=== PATIENT | female | born 1970 | race Caucasian/White ===

== ENCOUNTER 2020-02-02 16:02 | Outpatient (CLI) | payer OTHER, SELFPAY ==
--- NOTE | ~2020-02-02 | US_ITS ---
EXAMINATION: US venous doppler [facility] EXAM DATE: 02/02/2020 16:46 INDICATION: Left calf swelling and pain. TECHNIQUE: Multiple grayscale, color flow and Doppler images of the left lower extremity deep venous system were obtained and reviewed. There is no prior study for comparison. FINDINGS: The left common femoral, femoral and profunda veins demonstrate normal color flow, respirat ory variation, augmentation and compressibility. Compressibility, color flow confirmed within the le ft popliteal, posterior tibial, peroneal, and greater saphenous veins. IMPRESSION: 1. No left lower extremity deep venous thrombosis. Reviewed, dictated and finalized at location B.
== END 2020-02-02 16:03 | disposition home or self-care (01) ==
PROVIDERS: PCP Family Medicine; Visit Provider Orthopaedic Surgery
DX: M79.89 Other specified soft tissue disorders (principal)
CPT/HCPCS: 93971

== ENCOUNTER 2020-05-02 11:28 | Outpatient (NON) | payer OTHER, SELFPAY ==
[2020-05-03 18:24] LABS: SARS-CoV-2 RNA PCR Positive
== END 2020-05-02 11:29 ==
LOC: ANHCOVIDDT 11:30
PROVIDERS: PCP Family Medicine; Visit Provider Family Medicine
DX: U07.1 COVID-19 (principal)
CPT/HCPCS: 87635; C9803; U0003

== ENCOUNTER 2020-10-21 11:18 | Outpatient (CLI) | payer OTHER, SELFPAY ==
--- NOTE | ~2020-10-21 | US_ITS ---
EXAMINATION: US pelvic complete w TV DATE: 10/21/2020 12:03 INDICATION: Pelvic pain and vaginal spotting Comparison:CT dated 02/10/2017 TECHNIQUE: Multiple transabdominal and endovaginal sonographic images of the pelvis performed. FINDINGS: The uterus measures 10 x 5 x 5.3 cm. There are multiple uterine fibroids including a 3.8 cm fibroid anteriorly and a 7.6 cm fibroid posteriorly and inferiorly. The endometrial complex measures 8 mm. The right ovary measures 2.2 x 2.1 x 2.3 cm and the left ovary measures 6.9 x 6.3 x 5.7 cm. There is a 5.3 cm left ovarian cyst. There are small follicles in each ovary. Normal doppler signal in both ov claudia. There is no free fluid in the pelvis. There are no abnormal masses seen on either side. IMPRESSION: 1. Left ovarian cyst measuring 5.3 cm. 2: Enlarged fibroid uterus. Reviewed, dictated and finalized at location A.
== END 2020-10-21 11:19 ==
PROVIDERS: PCP Physician Assistant; Visit Provider Physician Assistant
DX: R10.2 Pelvic and perineal pain (principal); D25.9 Leiomyoma of uterus, unspecified; N83.202 Unspecified ovarian cyst, left side
CPT/HCPCS: 76830; 76856

== ENCOUNTER → 2020-11-21 13:30 | Outpatient (CLI) | payer OTHER, SELFPAY ==
--- NOTE | ~2020-11-21 | MM_ITS ---
EXAMINATION: MM screening adriana BI w jay HISTORY: Screening mammogram TECHNIQUE: Craniocaudal and mediolateral oblique 3-D tomosynthesis images were obtained and synthetic 2-D images were generated. CAD analysis was submitted and interpreted. COMPARISON: 10/27/2018 bilateral diagnostic digital mammogram and bilateral Limited breast ultrasound examination BREAST PARENCHYMAL COMPOSITION: The breasts are almost entirely fatty. FINDINGS: There is no evidence of suspicious mass, calcification, or architectural distortion to sugg est malignancy in either breast. There has been no suspicious interval change. IMPRESSION: 1. No mammographic evidence of malignancy. 2. Recommend routine screening mammography in one year. BI-RADS Category 1: Negative Reviewed, dictated and finalized at location A.
== END ==
PROVIDERS: PCP Physician Assistant; Visit Provider Physician Assistant
DX: Z12.31 Encounter for screening mammogram for malignant neoplasm of breast (principal)
CPT/HCPCS: 77063; 77067

== ENCOUNTER 2020-12-19 04:10 | Emergency (ER) | payer OTHER, SELFPAY ==
--- NOTE | ~2020-12-19 | CT_ITS ---
EXAMINATION: CT abdomen pelvis w con DATE: 12/19/2020 05:41 INDICATION: Left lower quadrant abdominal pain TECHNIQUE: Computed tomography (CT) of the abdomen and pelvis was performed with 100 cc Omnipaque 350 intravenous contrast. Automated exposure control and iterative reconstruction technique were employe d. Exam dose: 1777.96 mGy-cm total exam DLP. COMPARISON: 04/09/2018 abdominal ultrasound examination 02/10/2017 CT abdomen pelvis FINDINGS: Approximately 5.5 mm groundglass opacity of middle lobe is partially included on the single uppermost axial image. No infiltrate or consolidation in the lower lung zones. Heart size is within normal range. No pericardial or pleural effusion. Small sliding hiatal hernia. Diffuse hepatic steatosis. No hepatic space-occupying mass lesion is evident. Status post cholecystec charu. No bile duct dilatation. Splenic size is within normal range. No pancreatic mass lesion, calcif ication or ductal dilatation. Normal morphology of the adrenal glands. No renal mass lesion or ureteral calculus or hydroureteronephrosis. There is a stable up to 7.5 cm mass at the left posterior aspect of the uterus, not significantly lisa nged since 1970, previously attributed to likely fibroid. Again noted is a heterogeneous left adnexal mass, currently measuring approximately 4.8 x 7.5 cm comp ared to previous measurement of 4.9 x 6.3 cm. Left ovarian neoplasm be considered. The right ovary ap pears unremarkable. Normal caliber of the abdominal aorta. No intraperitoneal or retroperitoneal or pelvic mass lesion or adenopathy or ascites is noted otherwi se. The urinary bladder is unremarkable. Normal appendix. No bowel obstruction, bowel wall thickening, pneumatosis or intraperitoneal free air . Prominent fat-containing umbilical hernia measuring up to 9.7 cm vertical, 7.5 cm transverse and 6 cm anteroposterior dimension. Degenerative changes of the thoracic and lumbar spine. No suspicious osteolytic or osteoblastic lesio ns are noted. IMPRESSION: Increased size of left adnexal mass from 4.9 x 6.3 cm on 03/13/2000 17-4 0.8 x 7.5 cm cur rently. Stable up to 7.5 cm mass at left posterior aspect of uterus, not significant change since , previously attributed to likely fibroid Diffuse hepatic steatosis Small sliding hiatal hernia 9.7 x 7.5 x 6 cm fat-containing umbilical hernia Reviewed, dictated and finalized at Location A. Reviewed, dictated and finalized at location A. IMPRESSION: Increased size of left adnexal mass from 4.9 x 6.3 cm on 03/13/2000 17-4 0.8 x 7.5 cm currently. Stable up to 7.5 cm mass at left posterior aspect of uterus, not significant ch dante since , previously attributed to likely fibroid Diffuse hepatic steatosis Small sliding hiatal hernia 9.7 x 7.5 x 6 cm fat-containing umbilical hernia
[2020-12-19 04:16] VITALS: BP 156/92; PULSE 89; RESP 18; TEMP 36.7; O2SAT 98
[2020-12-19 04:35] LABS: Basophils Absolute Auto 0.1 K/mm3 (0.0-0.1); Basophils Percent Auto 0.5 % (0.2-1.2); Eosinophils Absolute Auto 0.2 K/mm3 (0-0.3); Eosinophils Percent Auto 2.5 % (0-4.4); Hematocrit 43.8 % (37.0-47.0); Hemoglobin 14.2 g/dL (12.0-15.0); Immature Granulocyte Absolute 0.05 K/mm3 (0.00-0.031); Immature Granulocyte Percent A 0.5 % (0-0.5); Lymphocytes Absolute Auto 2.68 K/mm3 (0.9-3.2); Lymphocytes Percent Auto 28.6 % (18.3-44.2); Mean Corpuscular HGB Conc 32.4 g/dl (32-36); Mean Corpuscular Hemoglobin 28.6 pg (26-34); Mean Corpuscular Volume 88.3 fl (80-100); Monocytes Absolute Auto 0.8 K/mm3 (0.1-0.6); Neutrophils Absolute Auto 5.6 K/mm3 (1.3-6.7); Neutrophils Percent Auto 59.9 % (45.5-73.1); Platelet Count Result 268 k/mm3 (150-375); Red Blood Count 4.96 M/mm3 (4.2-5.4); Red Cell Distribution Width 13.3 % (11.5-14.5); White Blood Count 9.4 K/mm3 (4.5-10.0)
[2020-12-19] MEDS: SODIUM CHLORIDE 0.9% IV 1,000 ML 999 ML IV CONT (04:51)
[2020-12-19] MEDS: ONDANSETRON INJ 4 MG/2 ML VIAL IV PUSH (04:52)
[2020-12-19] MEDS: KETOROLAC 30 MG/ML VIAL (*BKC) 15 MG IV PUSH (04:54)
[2020-12-19 05:24] VITALS: BP 150/77; PULSE 73; O2SAT 97
[2020-12-19 05:24] LABS: Add Urine Microscopic? YES; Appearance Urine Cloudy (Clear); Bacteria Urine Trace /hpf; Bilirubin Urine Negative (Negative); Blood Urine Negative (Negative); Color Urine Amber (Yellow); Glucose Urine UA Negative (Negative); Ketones Urine Negative (Negative); Leukocyte Esterase Ur Trace LEU/UL (Negative); Mucus Urine Heavy /lpf; Nitrate Urine Negative (Negative); Protein Urine 2+ mg/dL (Negative); Squamous Epithelial Cell Urine Many /hpf (Few)
[2020-12-19 05:31] LABS: Estimated CRCL calculation 164 ml/min; Estimated Glomerular Filt Rate > 60
[2020-12-19 05:36] LABS: Specific Grav Ur 1.032 (1.001-1.035)
[2020-12-19 05:37] LABS: Alanine Aminotransferase 15 U/L (4-35); Albumin Level 3.8 g/dL (3.5-5.1); Alkaline Phosphatase 100 U/L (38-126); Anion Gap 9 mmol/L (8-16); Aspartate Amino Transferase 21 U/L (14-36); Bilirubin,Total 0.4 mg/dL (0.2-1.3); Blood Urea Nitrogen 11 mg/dL (7-17); Calcium 8.2 mg/dL (8.4-10.2); Carbon Dioxide 24 mmol/L (22-30); Chloride 104 mmol/L (98-107); Estimated CRCL calculation 164 ml/min; Estimated Glomerular Filt Rate > 60; Glucose 135 mg/dL (65-105); Lipase 111 U/L (23-300); Potassium 3.6 mmol/L (3.4-5.0); Sodium 137 mmol/L (137-145)
--- NOTE | 2020-12-19 05:41 | ED.GENADULT ---
HPI - General Adult General Chief complaint: Abdominal Pain Stated complaint: L flank pain Time Seen by Provider: 12/19/20 04:31 History of Present Illness HPI narrative: Patient is a 50-year-old female who presents emerged from with chief complaint of left lower quadrant pain. The patient reports that she has pain left lower quadrant and left flank area patient reports that radiates from the left lower quadrant reports is not improved by anything not worsened by anything denies fever denies chills denies nausea or vomiting or diarrhea. Patient reports no prior history of diverticulitis Related Data Allergies Allergy/AdvReac Type Severity Reaction Status Date / Time Sulfa (Sulfonamide Allergy Unknown Skin Verified 12/19/20 04:22 Antibiotics) irritation sulfur dioxide Allergy Unknown Unknown Verified 12/19/20 04:22 Review of Systems Review of Systems: Narrative: A 10 system review of systems was completed on the patient and is negative except for what is stated in the HPI. Nursing and ancillary documentation was reviewed. PMFSH Past Medical History Medical History BMI 37.0-37.9, adult Lipoma of flank Low calcium levels Low vitamin D level Morbidly obese Rash Routine physical examination Screening for lipid disorders Screening for thyroid disorder Subcutaneous mass Family History Family History Mother Diabetes mellitus Hypertension Grandparent Diabetes mellitus Family history of cardiovascular disease Malignant neoplasm of prostate Father Hypertension Sibling Hypertension Other Cerebrovascular accident Family history of arthritis Social History Social History Smoking status: Never smoker Alcohol intake: never Substance use: never Substance use type: does not use 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 HEAD: Normocephalic, atraumatic. EYES: PERRLA and EOMI. ENT: Nares clear, no rhinorrhea or epistaxis. Mucous membranes moist. NECK: Supple. CHEST: Clear to auscultation. No respiratory distress. HEART: Regular rate and rhythm. No murmur heard. Normal peripheral pulses. ABDOMEN: Soft, tenderness to palpation in the left lower quadrant, nondistended, normal active bowel sounds. EXTREMITIES: Normal range of motion. No edema. SKIN: Warm, dry, no rash. NEURO: No focal deficits. Alert and oriented x3. PSYCH: Normal mood and affect. Course Vital Signs Vital signs: Vital Signs Temperature 36.7 C 12/19/20 04:16 Pulse Rate 89 12/19/20 04:16 Respiratory Rate 18 12/19/20 04:16 Blood Pressure 156/92 H 12/19/20 04:16 Pulse Oximetry 98 12/19/20 04:16 Temperature 36.7 C 12/19/20 04:16 Pulse Rate 73 12/19/20 05:24 Respiratory Rate 18 12/19/20 04:16 Blood Pressure 150/77 H 12/19/20 05:24 Pulse Oximetry 97 12/19/20 05:24 Medical Decision Making Vital Signs Vital Signs: Vital Signs Temperature 36.7 C 12/19/20 04:16 Pulse Rate 89 12/19/20 04:16 Respiratory Rate 18 12/19/20 04:16 Blood Pressure 156/92 H 12/19/20 04:16 Pulse Oximetry 98 12/19/20 04:16 Temperature 36.7 C 12/19/20 04:16 Pulse Rate 73 12/19/20 05:24 Respiratory Rate 18 12/19/20 04:16 Blood Pressure 150/77 H 12/19/20 05:24 Pulse Oximetry 97 12/19/20 05:24 Lab Data Result diagrams: 12/19/20 04:28 12/19/20 05:27 Labs: Lab Results 12/19/20 12/19/20 12/19/20 Range/Units 04:27 04:28 04:58 WBC 9.4 (4.5-10.0) K/mm3 RBC 4.96 (4.2-5.4) M/mm3 Hgb 14.2 (12.0-15.0) g/dL Hct 43.8 (37.0-47.0) % MCV 88.3 (80-100) fl MCH 28.6 (
[2020-12-19 06:25] VITALS: BP 159/91; PULSE 71; RESP 18; O2SAT 97
[2020-12-19 07:04] VITALS: BP 145/80; PULSE 71; RESP 15; O2SAT 95
[2020-12-19 07:57] VITALS: BP 150/99; PULSE 67; RESP 14; O2SAT 97
[2020-12-19 08:37] VITALS: BP 144/82; PULSE 96; RESP 17; O2SAT 96
== END 2020-12-19 08:38 | disposition home or self-care (01) ==
PROVIDERS: Emergency Medicine; Emergency Provider Emergency Medicine; PCP Physician Assistant
DX: N94.89 Other specified conditions associated with female genital organs and menstrual cycle (principal); N39.0 Urinary tract infection, site not specified; Z68.43 Body mass index [BMI] 50.0-59.9, adult; E66.01 Morbid (severe) obesity due to excess calories
CPT/HCPCS: 36415; 74177; 80053; 81001; 81025; 83690; 85025; 87077; 87086; 87088; 87186; 96361; 96374; 96375; 99284; J1885; J2405; J7030; Q9967

== ENCOUNTER 2020-12-25 11:14 | Outpatient (CLI) | payer OTHER, SELFPAY ==
[2020-12-28 03:43] LABS: CA-125 14 U/mL (<35)
== END 2020-12-25 11:15 | disposition home or self-care (01) ==
LOC: ANHLAB 11:16
PROVIDERS: PCP Physician Assistant; Visit Provider Obstetrics & Gynecology
DX: R10.2 Pelvic and perineal pain (principal); N83.202 Unspecified ovarian cyst, left side
CPT/HCPCS: 36415; 86304

== ENCOUNTER 2020-12-25 23:06 | Emergency (ER) | payer OTHER, SELFPAY ==
--- NOTE | 2020-12-25 23:10 | PC.NURSE ---
Pt. to triage and asked if she could run home for her phone. pt. states she will be back in five minutes. RN informed pt. cannot guarantee that her spot will be held.
--- NOTE | 2020-12-26 00:10 | PC.NURSE ---
Pt. never returned after ambulating out of ed. pt. did not appear to be in acute distress upon departure.
== END 2020-12-26 00:28 | disposition left against medical advice (07) ==
PROVIDERS: PCP Physician Assistant
DX: Z53.21 Procedure and treatment not carried out due to patient leaving prior to being seen by health care provider (principal)
CPT/HCPCS: 99199

== ENCOUNTER → 2021-01-19 01:05 | Outpatient (CLI) | payer OTHER, SELFPAY ==
[2021-01-19 23:59] LABS: SARS-CoV-2 RNA PCR Negative
== END ==
PROVIDERS: PCP Physician Assistant; Visit Provider Obstetrics & Gynecology
DX: Z01.812 Encounter for preprocedural laboratory examination (principal); Z20.822 Contact with and (suspected) exposure to COVID-19
CPT/HCPCS: C9803; U0003; U0005

== ENCOUNTER 2021-01-22 17:12 | Inpatient (IN) | payer OTHER, SELFPAY ==
[2021-01-16 13:03] VITALS: BMI 53.7
--- NOTE | 2021-01-19 16:27 | P.PNAN_ITS ---
Anes - Eval Pre Procedure Procedure: Operation Date: 01/22/21 12:00 Proposed Procedures p Total Laparoscopic Hysterectomy with Bilateral Salpingo-oophorectomy - Calli Flores MD Date/Time: 01/19/21 16:27 Pre Op Diagnosis: Pelvic Pain,[place] Mass, Fibroids, Menorrhagia Patient Data Age: 50 Gender: F Height: 1.78 m Weight: 170 kg Allergies Allergy/AdvReac Type Severity Reaction Status Date / Time Sulfa (Sulfonamide Allergy Unknown Skin Verified 01/16/21 13:00 Antibiotics) irritation sulfur dioxide Allergy Unknown Unknown Verified 01/16/21 13:00 Home Medications Medication Instructions Recorded Confirmed Type fluoxetine 60 mg tablet 60 mg PO DAILY #30 tablet 12/05/20 01/16/21 Rx calcium carbonate 500 mg calcium 500 mg PO DAILY 12/25/20 01/16/21 History (1,250 mg) tablet ycvxzysp-pxievwh-wgrt-iron 18 tablet PO .qd tablet 12/25/20 01/05/21 History mg-FA 400 mcg-vit K 25 mcg tablet omeprazole 20 mg capsule,delayed 20 mg PO DAILY 12/25/20 01/16/21 History release hydrocodone 5 mg-acetaminophen 325 1 tablet PO Q6H PRN #30 tablet 12/26/20 01/16/21 Rx mg tablet Patient hx anesthesia problems: none Family hx anesthesia problems: none PMFSH Past Medical History Medical History BMI 37.0-37.9, adult Lipoma of flank Low calcium levels Low vitamin D level Morbidly obese Rash Routine physical examination Screening for lipid disorders Screening for thyroid disorder Subcutaneous mass Surgical History Surgical History History of cholecystectomy History of endometrial ablation History of laparoscopy Family History Family History Mother Diabetes mellitus Hypertension Grandparent Diabetes mellitus Family history of cardiovascular disease Malignant neoplasm of prostate Father Hypertension Sibling Hypertension Other Cerebrovascular accident Family history of arthritis Social History Social History Smoking status: Never smoker Second hand tobacco smoke exposure: No Alcohol intake: never Substance use: never Substance use type: does not use 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
--- NOTE | 2021-01-19 19:25 | P.PNAN_ITS ---
Anes - Eval Pre Procedure Procedure: Operation Date: 01/22/21 12:00 Proposed Procedures p Total Laparoscopic Hysterectomy with Bilateral Salpingo-oophorectomy - Calli Flores MD Date/Time: 01/19/21 19:25 Pre Op Diagnosis: Pelvic Pain,[place] Mass, Fibroids, Menorrhagia Patient Data Age: 50 Gender: F Height: 1.78 m Weight: 170 kg Allergies Allergy/AdvReac Type Severity Reaction Status Date / Time Sulfa (Sulfonamide Allergy Unknown Skin Verified 01/16/21 13:00 Antibiotics) irritation sulfur dioxide Allergy Unknown Unknown Verified 01/16/21 13:00 Home Medications Medication Instructions Recorded Confirmed Type fluoxetine 60 mg tablet 60 mg PO DAILY #30 tablet 12/05/20 01/16/21 Rx calcium carbonate 500 mg calcium 500 mg PO DAILY 12/25/20 01/16/21 History (1,250 mg) tablet vdwufjlx-htlalhb-pxwb-iron 18 tablet PO .qd tablet 12/25/20 01/05/21 History mg-FA 400 mcg-vit K 25 mcg tablet omeprazole 20 mg capsule,delayed 20 mg PO DAILY 12/25/20 01/16/21 History release hydrocodone 5 mg-acetaminophen 325 1 tablet PO Q6H PRN #30 tablet 12/26/20 01/16/21 Rx mg tablet Patient hx anesthesia problems: none Family hx anesthesia problems: none PMFSH Past Medical History Medical History (Updated 01/19/21 @ 19:26 by Aj Baez DO) Anxiety BMI 37.0-37.9, adult Fibroids GERD (gastroesophageal reflux disease) Lipoma of flank Low calcium levels Low vitamin D level Morbidly obese Rash Subcutaneous mass Surgical History Surgical History History of cholecystectomy History of endometrial ablation History of laparoscopy Family History Family History Mother Diabetes mellitus Hypertension Grandparent Diabetes mellitus Family history of cardiovascular disease Malignant neoplasm of prostate Father Hypertension Sibling Hypertension Other Cerebrovascular accident Family history of arthritis Social History Social History Smoking status: Never smoker Second hand tobacco smoke exposure: No Alcohol intake: never Substance use: never Substance use type: does not use 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
[2021-01-22] VITALS (10 sets, daily range): BP systolic 97–154; BP diastolic 55–92; PULSE 76–93; RESP 13–20; TEMP 36.3–36.7; O2SAT 90–100
--- NOTE | 2021-01-22 06:14 | PM.IMHP ---
H&P: HPI History of Present Illness Date/Time: 01/22/21 06:14 50 y/o with heavy periods and worsening pelvic pain. LLQ pain started 09/2020 and has become more severe and constant, not relieved with ibuprofen or Tramadol but norco helps. Periods monthly lasting 7-9 days, 4-5 are heavy. She is not sexually active. h/o anemia but no transfusions Chief Complaint: Menorrhagia, left adnexal mass Review of Systems Review of Systems: All systems reviewed & are unremarkable except as noted in HPI and below PMFSH Past Medical History Medical History (Updated 01/19/21 @ 19:26 by Aj Baez DO) Anxiety BMI 37.0-37.9, adult Fibroids GERD (gastroesophageal reflux disease) Lipoma of flank Low calcium levels Low vitamin D level Morbidly obese Rash Subcutaneous mass Surgical History Surgical History History of cholecystectomy History of endometrial ablation History of laparoscopy Family History Family History Mother Diabetes mellitus Hypertension Grandparent Diabetes mellitus Family history of cardiovascular disease Malignant neoplasm of prostate Father Hypertension Sibling Hypertension Other Cerebrovascular accident Family history of arthritis Social History Social History Smoking status: Never smoker Second hand tobacco smoke exposure: No Alcohol intake: never Substance use: never Substance use type: does not use Living arrangements: with family 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 Gender identity (if verbalized by the patient): Female Spiritual care concerns: No Meds Home Medications and Allergies Home Medications Medication Instructions Recorded Confirmed Type fluoxetine 60 mg tablet 60 mg PO DAILY #30 tablet 12/05/20 01/16/21 Rx calcium carbonate 500 mg calcium 500 mg PO DAILY 12/25/20 01/16/21 History (1,250 mg) tablet thxgdvem-tvmkqpc-lnyn-iron 18 tablet PO .qd tablet 12/25/20 01/05/21 History mg-FA 400 mcg-vit K 25 mcg tablet omeprazole 20 mg capsule,delayed 20 mg PO DAILY 12/25/20 01/16/21 History release hydrocodone 5 mg-acetaminophen 325 1 tablet PO Q6H PRN #30 tablet 12/26/20 01/16/21 Rx mg tablet Allergies Allergy/AdvReac Type Severity Reaction Status Date / Time Sulfa (Sulfonamide Allergy Unknown Skin Verified 01/16/21 13:00 Antibiotics) irritation sulfur dioxide Allergy Unknown Unknown Verified 01/16/21 13:00 Exam Const: General: healthy appearing, alert and awake Resp: Auscultation: clear to auscultation bilaterally Cardio: Rate: regular rate Rhythm: regular rhythm GI: Inspection: non-distended GI Palp: Yes Soft to palpation, No Tenderness to palpation present (GI) and Yes Hernia present (umbilical, soft and nontender) : Bimanual exam- vagina & uterus: non-tender, enlarged and soft Bimanual Exam- Adnexa, other: tender on the left and Adnexal mass present on the left tender OB/external & speculum: external exam normal Extrem: General: no pedal edema and no calf tenderness Psych: Mental Status: mental status grossly normal Assessment and Plan Assessment and plan (1) Mass of left ovary: Code(s): N83.8 - Other noninflammatory disorders of ovary, fallopian tube and broad ligament Status: Acute Assessment and Plan: Ca-125 normal so suspicion for cancer is low. She opted and signed consent for TLH/BSO after risks, benefits, complications, and alternatives discussed. She is aware removing both ovaries will put her into menopause. We will see how she feels without hormones and start HRT if bothersome symptoms. We also discussed additional risk factors for needing an open procedure / laparotomy including the size of her uterus and adnexal mass, her obesity, as well as her large umbilical hernia
[2021-01-22] MEDS: ACETAMINOPHEN 500 MG TABLET 1000 MG PO (10:39)
[2021-01-22] MEDS: KETOROLAC 15 MG/ML VIAL (*BKC) IV PUSH (10:40)
[2021-01-22] MEDS: LACTATED RINGERS 1,000 ML 30 ML IV CONT ×3 (11:19→16:48)
--- NOTE | 2021-01-22 11:40 | WPDANESEFPP ---
Anes - Eval Final PreProcedure Day of Procedure 01/22/21 11:40 Patient weight: super morbidly obese Heart: regular rate and rhythm Lungs: decreased breath sounds Airway: Mallampati scale class II Neurological: alert and oriented Last oral intake: >/= 8 hours ASA classification: III Emergent: no Anesthetic plan: proceed Anesthesia type and monitoring: general ETT and standard monitoring Informed Consent: The patient's anesthetic plan and its attendant risks and benefits were discussed with the patient/family/POA. Questions were solicited and answers provided to the satisfaction of the patient/family/POA.
--- NOTE | 2021-01-22 11:45 | WPDHPUPDATE1 ---
History and Physical Update Update Date/Time: 01/22/21 11:45 History and Physical has been reviewed, including an updated exam of the patient. There are NO changes in the patient's condition. Risks, benefits, and alternatives have been discussed and questions answered. Patient agrees to proceed with procedure.
[2021-01-22] MEDS: ceFAZolin 3 GM/D5W 100 ML 100 ML IVPB (11:59)
[2021-01-22] MEDS: BUPIVACAINE/EPINEPHRINE 0.5% 30 ML VIAL INFILTRATE (13:01)
[2021-01-22] MEDS: diphenhydrAMINE HCl INJ 50 MG/ML VIAL 12.5 MG IV PUSH ×2 (16:02→16:20)
--- NOTE | 2021-01-22 16:10 | PM.OP ---
Procedure Note - Brief Procedure Note - Brief Date of procedure: 01/22/21 Pre-op diagnosis: Pelvic Pain,Adenexa Mass, Fibroids, Menorrhagia Post-op diagnosis: other (Allabove + extensive pelvic adhesions) Procedure performed: LEBRON/BSO + extensive lysis of adhesions Anesthesia: DARRON Surgeon: Calli Flores MD Estimated blood loss (mL): 1,300 Drains: Yes (Johnson) Packing: No Pathology: yes Complications: No immediate complications Condition: stable Disposition: PACU Findings: enlarged fibroid uterus, enlarged bilateral cystic ovaries with chocolate fluid in left adnexal cysts and clear fluid in right adnexal cysts; adhesions of uterus to colon and both pelvic sidewalls and of both adnexa to uterus, colon, and pelvic sidewalls
[2021-01-22 16:26] LABS: Hematocrit 31.8 % (37.0-47.0); Hemoglobin 10.2 g/dL (12.0-15.0); Mean Corpuscular HGB Conc 32.1 g/dl (32-36); Mean Corpuscular Hemoglobin 28.8 pg (26-34); Mean Corpuscular Volume 89.8 fl (80-100); Mean Platelet Volume 9.7 fl (7.4-10.4); Platelet Count Result 272 k/mm3 (150-375); Red Blood Count 3.54 M/mm3 (4.2-5.4); Red Cell Distribution Width 13.6 % (11.5-14.5); White Blood Count 20.9 K/mm3 (4.5-10.0)
[2021-01-22] MEDS: ONDANSETRON INJ 4 MG/2 ML VIAL IV PUSH (16:29)
[2021-01-22] MEDS: SCOPOLAMINE 1.5 MG PATCH TRANSDERM (16:31)
[2021-01-22] MEDS: DEXTROSE 5%/LACTATED RINGERS 1,000 ML 125 ML IV CONT (17:47)
[2021-01-22] MEDS: KETOROLAC 30 MG/ML VIAL (*BKC) IV PUSH (17:47)
--- NOTE | 2021-01-22 17:58 | PC.NURSE ---
1719-This patient, Sabrina Vasquez, was admitted to OB 2nd Floor Room 289-00. Patient/family oriented to hospital policies and general routines including ID bracelet, bed and alarms, visiting hours, pain management, procedures, bathroom and other care routines, personal items, smoking policy, room service/diet, and visiting hours. Information on how to activate the Rapid Response Team has been discussed. Patient/Family are encouraged to report perceived risks to care and to ask questions if they do not understand what they are told or what they should do.
[2021-01-22] MEDS: HYDROcodone/acetaminophen (*CRX) 10-325 MG TABLET 1 TAB PO (20:14)
[2021-01-22] MEDS: ENOXAPARIN 40 MG/0.4 ML SYRINGE SUB-Q (20:14)
[2021-01-23] VITALS: BP 117/63; PULSE 100; RESP 18; TEMP 36.5; O2SAT 96
[2021-01-23 04:00] VITALS: BP 105/60; PULSE 101; RESP 18; TEMP 36.9; O2SAT 96
[2021-01-23] MEDS: DEXTROSE 5%/LACTATED RINGERS 1,000 ML 125 ML IV CONT (05:27)
[2021-01-23] MEDS: HYDROcodone/acetaminophen (*CRX) 10-325 MG TABLET 1 TAB PO ×3 (05:29→19:00)
[2021-01-23] MEDS: IBUPROFEN 600 MG TABLET PO ×2 (05:29→11:53)
[2021-01-23] MEDS: ONDANSETRON INJ 4 MG/2 ML VIAL IV PUSH (05:30)
[2021-01-23 05:47] LABS: Basophils Percent Auto 0.2 % (0.2-1.2); Eosinophils Percent Auto 0.1 % (0-4.4); Hematocrit 28.7 % (37.0-47.0); Hemoglobin 9.1 g/dL (12.0-15.0); Immature Granulocyte Absolute 0.06 K/mm3 (0.00-0.031); Immature Granulocyte Percent A 0.4 % (0-0.5); Lymphocytes Absolute Auto 1.76 K/mm3 (0.9-3.2); Lymphocytes Percent Auto 12.8 % (18.3-44.2); Mean Corpuscular HGB Conc 31.7 g/dl (32-36); Mean Corpuscular Volume 91.4 fl (80-100); Mean Platelet Volume 10.2 fl (7.4-10.4); Monocytes Absolute Auto 1.2 K/mm3 (0.1-0.6); Monocytes Percent Auto 8.9 % (2.6-8.5); Neutrophils Absolute Auto 10.7 K/mm3 (1.3-6.7); Neutrophils Percent Auto 77.6 % (45.5-73.1); Platelet Count Result 267 k/mm3 (150-375); Red Blood Count 3.14 M/mm3 (4.2-5.4); White Blood Count 13.8 K/mm3 (4.5-10.0)
[2021-01-23 07:00] VITALS: BP 118/65; PULSE 101; RESP 20; TEMP 37.3; O2SAT 96
[2021-01-23] MEDS: CALCIUM CARBONATE (OSCAL) 500 MG TABLET PO (08:50)
[2021-01-23] MEDS: FLUoxetine HCL 20 MG CAPSULE 60 MG PO (08:50)
[2021-01-23] MEDS: PANTOPRAZOLE 40 MG TABLET PO (08:50)
[2021-01-23] MEDS: ENOXAPARIN 40 MG/0.4 ML SYRINGE SUB-Q (08:53)
[2021-01-23 11:13] LABS: Anion Gap 3 mmol/L (8-16); Blood Urea Nitrogen 16 mg/dL (7-17); Calcium 7.7 mg/dL (8.4-10.2); Carbon Dioxide 26 mmol/L (22-30); Chloride 101 mmol/L (98-107); Estimated CRCL calculation 126 ml/min; Estimated Glomerular Filt Rate > 60; Glucose 156 mg/dL (65-110); Potassium 3.9 mmol/L (3.4-5.0); Sodium 130 mmol/L (137-145)
[2021-01-23 11:48] VITALS: BP 120/70; PULSE 85; RESP 18; TEMP 36.9; O2SAT 97
[2021-01-23] MEDS: SIMETHICONE 80 MG TAB.CHEW PO (11:52)
[2021-01-23 12:00] VITALS: PULSE 85; RESP 18; O2SAT 97
--- NOTE | 2021-01-23 14:49 | WPDANESPN ---
Anes - Prog Note Post-Op Date/Time: 01/23/21 14:49 Cardiovascular status: normal Respiratory status: normal Airway patency: baseline Mental status: baseline Post-Op hydration status: normal Vital Signs: Last Vital Signs Temp 36.9 C 01/23/21 11:48 Pulse 85 01/23/21 11:48 Resp 18 01/23/21 11:48 BP 120/70 01/23/21 11:48 Pulse Ox 97 01/23/21 11:48 Pain Score (VAS): 3 I/O: Intake & Output 01/22/21 01/23/21 01/23/21 23:59 07:59 15:59 Intake Total 1150 1000 Output Total 60 450 625 Balance 1090 550 -625 Laboratory Tests 01/23/21 05:13 01/23/21 05:13 01/22/21 01/22/21 01/23/21 14:31 16:19 05:13 WBC 20.9 H 13.8 H RBC 3.54 L 3.14 L Hgb 10.2 L D 9.1 L Hct 31.8 L 28.7 L MCV 89.8 91.4 MCH 28.8 29.0 MCHC 32.1 31.7 L RDW 13.6 14.0 Plt Count 272 267 MPV 9.7 10.2 Immature Gran % (Auto) 0.4 Neut % (Auto) 77.6 H Lymph % (Auto) 12.8 L [place] % (Auto) 8.9 H Eos % (Auto) 0.1 Baso % (Auto) 0.2 Lymph # (Auto) 1.76 [place] # (Auto) 1.2 H Eos # (Auto) 0.0 Baso # (Auto) 0.0 Abs Immat Gran (auto) 0.06 H Absolute Neuts (auto) 10.7 H Absolute Nucleated RBC 0.0 Nucleated RBC % 0.0 Sodium Potassium Chloride Carbon Dioxide Anion Gap BUN Creatinine Estim Creat Clear Calc Estimated GFR Glucose Calcium Blood Type B Positive Antibody Screen Negative 01/23/21 05:13 WBC RBC Hgb Hct MCV MCH MCHC RDW Plt Count MPV Immature Gran % (Auto) Neut % (Auto) Lymph % (Auto) [place] % (Auto) Eos % (Auto) Baso % (Auto) Lymph # (Auto) [place] # (Auto) Eos # (Auto) Baso # (Auto) Abs Immat Gran (auto) Absolute Neuts (auto) Absolute Nucleated RBC Nucleated RBC % Sodium 130 L Potassium 3.9 Chloride 101 Carbon Dioxide 26 Anion Gap 3 L BUN 16 Creatinine 0.80 Estim Creat Clear Calc 126 Estimated GFR > 60 Glucose 156 H Calcium 7.7 L Blood Type Antibody Screen Post-procedural complaints: none Patient Feedback: Patient satisfied with anesthetic care.
--- NOTE | 2021-01-23 16:27 | PM.GYNPNOP ---
CORSET FITTER - A/P Postoperative Procedures: Procedures Operation Date: 01/22/21 12:00 Actual Procedure Side Surgeon p Total Abdominal Hysterectomy with Bilateral Salpingo-oophorectomy Bilateral Calli Flores MD Postoperative day: 1 (s/p hysterectomy) Postoperative status: doing well Postoperative plan: routine post-op care and other (Likely discharge tomorrow) Time Spent With Patient Time: Total time spent is greater than 50% in coordination of care (as documented) at patient's floor/unit and/or counseling patient: Time with patient: less than 15 minutes CORSET FITTER- PN:Subj Post-Op Subjective Date/time seen: 01/23/21 16:27 Subjective: patient has no complaints, pain is well controlled and other (Tolerating regular diet. + flatus. Voiding without problems) Exam Const: General: no acute distress Resp: Auscultation: clear to auscultation bilaterally Cardio: Rate: regular rate Rhythm: regular rhythm GI: Inspection: non-distended and incision (Intact without erythema, drainage, or induration) GI Palp: Yes abdominal tenderness (appropriate) and Yes Soft to palpation Extrem: General: no edema CORSET FITTER - PN: Obj Data Vital Signs Vital Signs: Vital Signs - 24 hr 01/22/21 16:40 01/22/21 16:55 01/22/21 17:09 Temperature 36.5 C 36.5 C Pulse Rate 91 86 92 Respiratory Rate 17 14 13 Blood Pressure 123/90 119/81 119/81 Pulse Oximetry 97 96 97 01/22/21 17:45 01/22/21 18:51 01/23/21 00:00 Temperature 36.3 C L 36.7 C 36.5 C Pulse Rate 90 88 100 Respiratory Rate 16 16 18 Blood Pressure 97/55 L 120/66 117/63 Pulse Oximetry 90 97 96 01/23/21 04:00 01/23/21 07:00 01/23/21 11:48 Temperature 36.9 C 37.3 C 36.9 C Pulse Rate 101 H 101 H 85 Respiratory Rate 18 20 18 Blood Pressure 105/60 118/65 120/70 Pulse Oximetry 96 96 97 Intake/Output Intake/Output: Intake & Output 01/20/21 01/21/21 01/22/21 01/23/21 23:59 23:59 23:59 23:59 Intake Total 1150 1000 Output Total 60 1075 Balance 1090 -75 Meds/Results Medications: Active Medications Generic Name Dose Route Start Last Admin Trade Name Freq PRN Reason Stop Dose Admin Hydrocodone Bitart/Acetaminophen 1 tab 01/22/21 17:12 Hydrocodone/Acetaminophen (*Crx) 5-325 Mg Tablet PO Q3H PRN Pain Rated 5 or Less Hydrocodone Bitart/Acetaminophen 1 tab 01/22/21 17:12 01/23/21 11:53 Hydrocodone/Acetaminophen (*Crx) 10-325 Mg Tablet PO 1 tab Q3H PRN Administration Pain Rated 6 or Greater Bisacodyl 10 mg 01/22/21 17:12 Bisacodyl 10 Mg Suppository RECTAL ONCE PRN Constipation Calcium Carbonate 500 mg 01/23/21 09:00 01/23/21 08:50 Calcium Carbonate (Oscal) 500 Mg Tablet PO 500 mg DAILY INES Administration Enoxaparin Sodium 40 mg 01/22/21 22:00 01/23/21 08:53 Enoxaparin 40 Mg/0.4 Ml Syringe SUB-Q 40 mg DAILY INES Administration Fluoxetine HCl 60 mg 01/23/21 09:00 01/23/21 08:50 Fluoxetine Hcl 20 Mg Capsule PO 60 mg DAILY INES Administration Dextrose/Lactated Ringer's 1,000 mls @ 125 mls/hr 01/22/21 17:12 01/23/21 05:27 Dextrose 5%/Lactated Ringers IV CONT 125 mls/hr .Q8H INES Administration Ibuprofen 600 mg 01/22/21 17:12 01/23/21 11:53 Ibuprofen 600 Mg Tablet PO 600 mg Q6H PRN Administration Cramping Ketorolac Tromethamine 30 mg 01/22/21 17:12 01/22/21 17:47 Ketorolac 30 Mg/Ml Vial (*Bkc) IV PUSH 01/27/21 17:13 30 mg Q6H PRN Administration Pain Rated 4-6 Metoclopramide HCl 10 mg 01/22/21 17:12 Metoclopramide Hcl Inj 10 Mg/2 Ml Vial IV PUSH Q6H PRN Nausea Morphine Sulfate 4 mg 01/22/21 17:12 Morphine Sulfate (*Crx) 4 Mg/Ml Inj IV PUSH Q4H PRN Pain Rated 7-10 Naloxone HCl 0.1 mg 01/22/21 17:12 Naloxone Hcl 0.4 Mg/Ml Vial IV PUSH Q2M PRN Respiratory rate less than 10 Ondansetron HCl 4 mg 01/22/21 17:12 01/23/21 05:30 Ondansetron Inj 4 Mg/2 Ml Vial IV PUSH 4 mg Q6H PRN Administration Nausea
[2021-01-23 18:36] VITALS: BP 144/82; PULSE 95; RESP 20; TEMP 36.7; O2SAT 96
[2021-01-24] MEDS: IBUPROFEN 600 MG TABLET PO ×2 (03:08→09:05)
[2021-01-24] MEDS: HYDROcodone/acetaminophen (*CRX) 5-325 MG TABLET 1 TAB PO ×2 (03:08→09:04)
--- NOTE | 2021-01-24 07:44 | PM.GYNPNOP ---
MANAGER FILM - A/P Postoperative Procedures: Procedures Operation Date: 01/22/21 12:00 Actual Procedure Side Surgeon p Total Abdominal Hysterectomy with Bilateral Salpingo-oophorectomy Bilateral Calli Flores MD Postoperative day: 2 (s/p hysterectomy) Postoperative status: doing well Postoperative plan: routine post-op care and discharge (and follow up in office in 1 week for postop visit and staple removal) Time Spent With Patient Time: Total time spent is greater than 50% in coordination of care (as documented) at patient's floor/unit and/or counseling patient: Time with patient: less than 15 minutes MANAGER FILM- PN:Subj Post-Op Subjective Date/time seen: 01/24/21 07:44 Subjective: patient has no complaints, pain is well controlled and other (Tolerating regular diet. + flatus. Voiding without problems) Exam Const: General: no acute distress Resp: Auscultation: clear to auscultation bilaterally Cardio: Rate: regular rate Rhythm: regular rhythm GI: Inspection: non-distended and incision (Intact without erythema, drainage, or induration) GI Palp: Yes abdominal tenderness (appropriate) and Yes Soft to palpation Extrem: General: no edema MANAGER FILM - PN: Obj Data Vital Signs Vital Signs: Vital Signs - 24 hr 01/23/21 11:48 01/23/21 12:00 01/23/21 18:36 Temperature 36.9 C 36.7 C Pulse Rate 85 85 95 Respiratory Rate 18 18 20 Blood Pressure 120/70 144/82 H Pulse Oximetry 97 97 96 Intake/Output Intake/Output: Intake & Output 01/21/21 01/22/21 01/23/21 01/24/21 23:59 23:59 23:59 23:59 Intake Total 1150 1000 Output Total 60 1375 Balance 1090 -375 Meds/Results Medications: Active Medications Generic Name Dose Route Start Last Admin Trade Name Freq PRN Reason Stop Dose Admin Hydrocodone Bitart/Acetaminophen 1 tab 01/22/21 17:12 01/24/21 03:08 Hydrocodone/Acetaminophen (*Crx) 5-325 Mg Tablet PO 1 tab Q3H PRN Administration Pain Rated 5 or Less Hydrocodone Bitart/Acetaminophen 1 tab 01/22/21 17:12 01/23/21 19:00 Hydrocodone/Acetaminophen (*Crx) 10-325 Mg Tablet PO 1 tab Q3H PRN Administration Pain Rated 6 or Greater Bisacodyl 10 mg 01/22/21 17:12 Bisacodyl 10 Mg Suppository RECTAL ONCE PRN Constipation Calcium Carbonate 500 mg 01/23/21 09:00 01/23/21 08:50 Calcium Carbonate (Oscal) 500 Mg Tablet PO 500 mg DAILY INES Administration Enoxaparin Sodium 40 mg 01/22/21 22:00 01/23/21 08:53 Enoxaparin 40 Mg/0.4 Ml Syringe SUB-Q 40 mg DAILY INES Administration Fluoxetine HCl 60 mg 01/23/21 09:00 01/23/21 08:50 Fluoxetine Hcl 20 Mg Capsule PO 60 mg DAILY INES Administration Ibuprofen 600 mg 01/22/21 17:12 01/24/21 03:08 Ibuprofen 600 Mg Tablet PO 600 mg Q6H PRN Administration Cramping Pantoprazole Sodium 40 mg 01/23/21 09:00 01/23/21 08:50 Pantoprazole 40 Mg Tablet PO 40 mg QAM INES Administration Simethicone 80 mg 01/22/21 17:12 01/23/21 11:52 Simethicone 80 Mg Tab.Chew PO 80 mg Q2H PRN Administration Gas Labs CBC & Chem 7: 01/23/21 05:13 01/23/21 05:13 Labs: Laboratory Results - last 24 hr 01/23/21 05:13 Sodium 130 L Potassium 3.9 Chloride 101 Carbon Dioxide 26 Anion Gap 3 L BUN 16 Creatinine 0.80 Estim Creat Clear Calc 126 Estimated GFR > 60 Glucose 156 H Calcium 7.7 L Quality VTE Prophylaxis VTE prophylaxis: mechanical ordered and pharmacologic ordered
--- NOTE | 2021-01-24 07:45 | PM.DS ---
DS: Admitting Diagnosis Admitting Diagnosis Fibroids, menorrhagia, left adnexal mass DS: Discharge Diagnosis Discharge Diagnosis (1) Fibroids: Code(s): D21.9 - Benign neoplasm of connective and other soft tissue, unspecified Status: Acute (2) Menorrhagia: Code(s): N92.0 - Excessive and frequent menstruation with regular cycle Status: Acute (3) Bilateral tubo-ovarian mass: Code(s): N83.8 - Other noninflammatory disorders of ovary, fallopian tube and broad ligament Status: Acute DS: Summary Hospital Course Reason for hospitalization: hysterectomy Hospital Course: Sabrina is 50 years old and was admitted on January 22, 2021 for a planned total laparoscopic hysterectomy with bilateral salpingo-oophorectomy. Decision was made prior to starting her surgery to do the procedure open with laparotomy instead of laparoscopy, mainly due to difficulty keeping her oxygen saturation up during her prep. Due to that, Anesthesia placed her in Trendelenburg while we were getting her ready for surgery. She was not tolerating that position well. That combined with the size of her uterus and her large umbilical hernia, decision was made to proceed with an open laparotomy instead of laparoscopy. Her surgery was difficult and lasted around 3 hours. Her uterus was significantly enlarged, as were both her ovaries. She had dense adhesions involving the adnexa, uterus, bowels, and pelvic sidewall. Eventually decision was made to do a supracervical hysterectomy in order to decrease the length of the surgery. Her estimated blood loss was 1300 mL. Her postoperative course has been uneventful. Her hemoglobin did drop to 9.1, but she is having no symptoms of anemia. She is meeting all postoperative milestones on postoperative day 2. And expressed desire to be discharged home. She does have hari in the midline vertical abdominal incision. Plan is to remove the hari at her 1 week postoperative visit. Status at Discharge Functional status at discharge: independent ambulation Overall status at discharge: patient is progressing back to baseline Time Spent with Patient Time attestation: Total time spent providing and/or coordinating discharge services: Time spent: Less than 30 minutes DS: Data Data Completed and Pending Pending studies at discharge: Pending at discharge 01/22/21 15:33 Surgical [PTH] Routine Labs on day of discharge: Labs from last 24 hours 01/23/21 05:13 Sodium 130 L Potassium 3.9 Chloride 101 Carbon Dioxide 26 Anion Gap 3 L BUN 16 Creatinine 0.80 Estim Creat Clear Calc 126 Estimated GFR > 60 Glucose 156 H Calcium 7.7 L Discharge Plan Discharge Attending physician on discharge: Calli Flores Discharging Clinician: Calli Flores Patient Disposition: Home, Self-Care Activity: may shower and pelvic rest Diet: as tolerated Wound Care Instructions: incision open to air Patient Instructions: Antibiotic Form Stand Alone Forms: General Discharge Information Follow-up/Referrals: Calli Flores MD [Physician] - 1 Week Discharge Medications: New hydrocodone-acetaminophen 5-325 mg Tablet 1 tablet PO Q4H PRN (Reason: Pain Rated 5 Or Less) Qty: 30 RF: 0 ibuprofen 600 mg Tablet 600 mg PO Q6H PRN (Reason: Cramping) Qty: 60 RF: 0 Continued calcium carbonate [Calcium 500] 500 mg calcium (1,250 mg) tablet 500 mg PO DAILY RF: 0 One-A-Day Women's Complete 18 mg-400 mcg- 25 mcg tablet PO .qd RF: 0 omeprazole 20 mg capsule,delayed release(DR/EC) 20 mg PO DAILY RF: 0 fluoxetine 60 mg tablet 60 mg PO DAILY Qty: 30 RF: 3 Discontinued hydrocodone-acetaminophen 5-325 mg tablet 1 tablet PO Q6H PRN (Reason: pain) Qty: 30 RF: 0 Date of admission: 01/22/21 17:12 Primary Care Provider: Tushar,Justine Cool Admitting Provider: Calli Flores Attending physician on admission: Calli Flores Condition: Stab
[2021-01-24 08:25] VITALS: BP 123/69; PULSE 87; RESP 18; TEMP 36.9; O2SAT 96
[2021-01-24] MEDS: FLUoxetine HCL 20 MG CAPSULE 60 MG PO (09:06)
[2021-01-24] MEDS: ENOXAPARIN 40 MG/0.4 ML SYRINGE SUB-Q (09:06)
[2021-01-24] MEDS: CALCIUM CARBONATE (OSCAL) 500 MG TABLET PO (09:06)
[2021-01-24] MEDS: PANTOPRAZOLE 40 MG TABLET PO (09:06)
--- NOTE | 2021-01-24 10:44 | PC.NURSE ---
0940 Pt discharged home per wheelchair to car. discharge papers signed at 0935; pt has her staple removal kit, benzoin and steri-strips for staple removal in office. Pt appears to be in stable condition.
--- NOTE | 2021-02-22 08:38 | W.PM.PROC2 ---
Procedure Note - Detailed Date of Procedure 01/22/21 Pre-op Diagnosis Pelvic Pain,Adenexa Mass, Fibroids, Menorrhagia Post-op Diagnosis same Procedure Performed Supracervical abdominal hysterectomy, BSO, extensive lysis of adhesions Surgeon Calli Flores MD Anesthesia general Indications 50 y/o G0 with heavy periods, severe pelvic pain, and left adnexal mass and fibroids seen on ultrasound Findings Enlarged fibroid uterus; bilateral enlarged cystic ovaries with chocolate fluid in left cyst; extensive adhesions involving uterus, both adnexa, colon, pelvic sidewalls; large umbilical hernia Description of Procedure She was taken to the operating room where general anesthesia was obtained. Original plan had been to attempt a laparoscopic approach. However, during her induction of anesthesia, the nurse floriculturist was reporting low oxygen saturation and high pressures even when she was in dorsal supine position. So we did a trial during her preparation in Trendelenburg position, and her oxygen levels were not able to be kept to a safe level and ventilation was proving to be difficult even prior to starting surgery, so decision was made to proceed with an open laparotomy instead of laparoscopy in order to avoid steep Trendelenburg. She was prepared and draped in the normal sterile fashion in the dorsal supine position. A midline vertical skin incision was made between the umbilicus and suprapubic area. That X incision was extended down through her extensive layer of subcutaneous tissue. The fascia was incised in the midline and grasped with Rodolfo clamps. The underlying rectus muscles were in the midline. The peritoneum was identified and tented up with 2 hemostats. The peritoneum was entered sharply. The incision is is was extended inferiorly and superiorly. The uterus was palpable but not able to be brought through the incision due to extensive adhesions. In order to obtain better visualization, her incision was extended up and around to the right side of her umbilicus and slightly above the umbilicus in the midline. She was noted to have a large umbilical hernia containing small intestine with no evidence of incarceration. There were multiple adhesions of the omentum to the anterior abdominal wall, so those were taken down using the Bovie. A bowel for retractor was then placed. The bowel was packed away to the extent possible with moist laparotomy sponges. There were dense adhesions of the significantly enlarged uterus to both pelvic sidewalls and to the colon. Both ovaries were also noted to be quite enlarged and adherent to the colon uterus and pelvic sidewalls. So the next hour or more was utilized to take down as many adhesions as possible using blunt and sharp dissection. At 1 point the cyst on the left ovary was ruptured with thick chocolate appearing fluid noted consistent with endometrioma. The uterus was still densely adherent to the colon and right pelvic sidewall, so more lysis of adhesions was accomplished until the uterus was free of the surrounding adhesions. The right infundibulopelvic ligament was clamped coagulated and transected with excellent hemostasis visualized the mesosalpinx was serially clamped and transected. The right round ligament was transected, and the bladder flap was created from the right side. The left infundibulopelvic ligament was then clamped and transected, and the mesosalpinx was serially clamped and transected. The left round ligament was transected. The bladder flap was created from the left side meeting the flap from the right. The bladder was pushed down further with a sponge stick. There was a large fibroid coming off the left side of the uterus that was obscuring visualization of the left side of the uterus as well as the area of the cervix. With the next 30-40 minutes was used to lyse adhesions around the large fibroid until that was free of the surrounding tissue other than its attachment to th
== END 2021-01-24 09:40 | disposition home or self-care (01) | DRG 742 ==
LOC: ANHOB2 17:19
PROVIDERS: Anesthesiology; Admitting Provider Obstetrics & Gynecology; PCP Physician Assistant; Visit Provider Obstetrics & Gynecology
PROC: 0UT9FZZ Resection of Uterus, Via Natural or Artificial Opening With Percutaneous Endoscopic Assistance (ICD-10-PCS; principal; 2021-01-22 12:00)
DX: D25.9 Leiomyoma of uterus, unspecified (principal); Z68.43 Body mass index [BMI] 50.0-59.9, adult; N83.8 Other noninflammatory disorders of ovary, fallopian tube and broad ligament; N73.6 Female pelvic peritoneal adhesions (postinfective); K42.9 Umbilical hernia without obstruction or gangrene; N92.0 Excessive and frequent menstruation with regular cycle; E66.01 Morbid (severe) obesity due to excess calories; Z90.49 Acquired absence of other specified parts of digestive tract; K21.9 Gastro-esophageal reflux disease without esophagitis; F41.9 Anxiety disorder, unspecified
CPT/HCPCS: 36415; 80048; 85025; 85027; 86850; 86900; 86901; 88307; A9270; C9803; J0330; J0690; J1200; J1650; J1885; J2250; J2270; J2405; J2704; J2710; J3010; J7030; J7120; J7121; U0003; U0005

== ENCOUNTER 2021-01-27 22:38 | Emergency (ER) | payer OTHER, SELFPAY ==
--- NOTE | ~2021-01-27 | CT_ITS ---
EXAMINATION: CT abdomen pelvis w con INDICATION: Upper abdominal pain post hysterectomy on 01/22/2021 TECHNIQUE: Computed tomographic images of the abdomen and pelvis were obtained after the administrati on of 100 cc of Omnipaque 350 intravenous contrast. The dose-length product (DLP) was 1667.03 mGy-cm. Automated exposure control and iterative reconstruction technique were employed. COMPARISON: 12/19/2020 FINDINGS: The lung bases are clear. The heart size is normal. The gallbladder is surgically absent. T here is mild enlargement of the common bile duct and central intrahepatic ducts which is likely due t o post cholecystectomy state. The liver, spleen, pancreas, and adrenal glands are normal. The right k idney is unremarkable. There is a 2 mm nonobstructing stone of the left kidney. No pathologically enl arged abdominal or pelvic lymph nodes are identified. There are changes consistent with interval hyst erectomy. There is a persistent large umbilical hernia containing fat. A new hernia containing fat an d nonobstructed small bowel has developed just inferior to the umbilical hernia. There are no dilated loops of bowel. There is infiltration of the anterior subcutaneous tissues of the abdominal wall, li mundo related to surgery. A mildly hyperattenuating fluid collection in the midline lower abdominal wa ll could reflect postoperative hematoma/seroma. A small amount of postoperative free intraperitoneal gas is identified. There is a small fluid collection in the left retroperitoneum and left pelvis. Mil d lumbar spondylosis is noted. IMPRESSION: 1. Findings consistent with recent hysterectomy including small volume of free intraperitoneal gas an d fluid collections in the anterior abdominal wall and left pelvis/retroperitoneum, possibly hematoma /seroma. 2. New ventral hernia of the right lower quadrant abdominal wall containing fat and nonobstructed sma ll bowel. Reviewed, dictated and finalized at location A. IMPRESSION: 1. Findings consistent with recent hysterectomy including small volume of free intraperitoneal gas and fluid collections in the anterior abdominal wall and le ft pelvis/retroperitoneum, possibly hematoma/seroma. 2. New ventral hernia of the right lower quadrant abdominal wall containing fat and nonobstructed small bowel.
[2021-01-27 22:41] VITALS: BP 141/73; PULSE 75; RESP 16; TEMP 36.9; O2SAT 98
--- NOTE | 2021-01-27 23:10 | ED.GENADULT ---
HPI - General Adult General Chief complaint: Abdominal Pain Stated complaint: abd pain post op Time Seen by Provider: 01/27/21 22:47 History of Present Illness HPI narrative: Patient is a 50-year-old female presents to the emergency department with chief complaint of abdominal pain. Patient reports that she had a hysterectomy done this week and reports that she coughed and had pain in her abdomen the patient reports he felt as though the hrai ripped but did not notice any actual opening of the wound. Patient states that she is had no fever reports that her pain is worsened with movement and improved with rest. Related Data Home Medications Medication Instructions Recorded Confirmed calcium carbonate 500 mg calcium 500 mg PO DAILY 12/25/20 01/22/21 (1,250 mg) tablet fheztfkz-nlzqmmx-ckkf-iron 18 tablet PO .qd tablet 12/25/20 01/05/21 mg-FA 400 mcg-vit K 25 mcg tablet omeprazole 20 mg capsule,delayed 20 mg PO DAILY 12/25/20 01/22/21 release Allergies Allergy/AdvReac Type Severity Reaction Status Date / Time Sulfa (Sulfonamide Allergy Unknown Skin Verified 01/22/21 10:57 Antibiotics) irritation sulfur dioxide Allergy Unknown Unknown Verified 01/22/21 10:57 Review of Systems Review of Systems: A 10 system review of systems was completed on the patient and is negative except for what is stated in the HPI. Nursing and ancillary documentation was reviewed. [facility] Past Medical History Medical History Anxiety BMI 37.0-37.9, adult Fibroids GERD (gastroesophageal reflux disease) Lipoma of flank Low calcium levels Low vitamin D level Morbidly obese Rash Subcutaneous mass Surgical History Surgical History History of cholecystectomy History of endometrial ablation History of laparoscopy Family History Family History Mother Diabetes mellitus Hypertension Grandparent Diabetes mellitus Family history of cardiovascular disease Malignant neoplasm of prostate Father Hypertension Sibling Hypertension Other Cerebrovascular accident Family history of arthritis Social History Social History Smoking status: Never smoker Second hand tobacco smoke exposure: No Alcohol intake: never Substance use: never Substance use type: does not use 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 HEAD: Normocephalic, atraumatic. EYES: PERRLA and EOMI. ENT: Nares clear, no rhinorrhea or epistaxis. Mucous membranes moist. NECK: Supple. CHEST: Clear to auscultation. No respiratory distress. HEART: Regular rate and rhythm. No murmur heard. Normal peripheral pulses. ABDOMEN: Soft, mild tenderness to palpation, nondistended, normal active bowel sounds. There are intact hari in the midline incision inferior to the umbilicus EXTREMITIES: Normal range of motion. No edema. SKIN: Warm, dry, no rash. NEURO: No focal deficits. Alert and oriented x3. PSYCH: Normal mood and affect. Course Vital Signs Vital signs: Vital Signs Temperature 36.9 C 01/27/21 22:41 Pulse Rate 75 01/27/21 22:41 Respiratory Rate 16 01/27/21 22:41 Blood Pressure 141/73 H 01/27/21 22:41 Pulse Oximetry 98 01/27/21 22:41 Temperature 36.9 C 01/27/21 22:41 Pulse Rate 79 01/28/21 02:44 Respiratory Rate 17 01/28/21 02:44 Blood Pressure 119/76 01/28/21 02:44 Pulse Oximetry 99 01/28/21 02:44 Medical Decision Making Vital Signs Vital Signs: Vital Signs Temperature 36.9 C 01/27/21 22:41 Pulse Rate 75 01/27/21 22:41 Respiratory Rate 16
[2021-01-27] MEDS: SODIUM CHLORIDE 0.9% IV 1,000 ML 999 ML IV CONT (23:35)
[2021-01-27] MEDS: ONDANSETRON INJ 4 MG/2 ML VIAL IV PUSH (23:35)
[2021-01-27] MEDS: MORPHINE SULFATE (*CRX) 4 MG/ML INJ IV PUSH (23:35)
[2021-01-27 23:39] LABS: Basophils Percent Auto 0.4 % (0.2-1.2); Eosinophils Absolute Auto 0.4 K/mm3 (0-0.3); Hematocrit 27.5 % (37.0-47.0); Hemoglobin 8.6 g/dL (12.0-15.0); Immature Granulocyte Absolute 0.15 K/mm3 (0.00-0.031); Immature Granulocyte Percent A 1.5 % (0-0.5); Lymphocytes Absolute Auto 1.58 K/mm3 (0.9-3.2); Lymphocytes Percent Auto 15.3 % (18.3-44.2); Mean Corpuscular HGB Conc 31.3 g/dl (32-36); Mean Corpuscular Hemoglobin 28.5 pg (26-34); Mean Corpuscular Volume 91.1 fl (80-100); Mean Platelet Volume 9.8 fl (7.4-10.4); Monocytes Absolute Auto 0.8 K/mm3 (0.1-0.6); Monocytes Percent Auto 7.4 % (2.6-8.5); Neutrophils Absolute Auto 7.4 K/mm3 (1.3-6.7); Neutrophils Percent Auto 71.4 % (45.5-73.1); Platelet Count Result 303 k/mm3 (150-375); Red Blood Count 3.02 M/mm3 (4.2-5.4); Red Cell Distribution Width 13.7 % (11.5-14.5); White Blood Count 10.3 K/mm3 (4.5-10.0)
[2021-01-27 23:41] VITALS: BP 121/67; PULSE 81; RESP 18; O2SAT 98
[2021-01-27 23:49] LABS: Alanine Aminotransferase 25 U/L (4-35); Albumin Level 3.1 g/dL (3.5-5.1); Alkaline Phosphatase 88 U/L (38-126); Anion Gap 4 mmol/L (8-16); Aspartate Amino Transferase 22 U/L (14-36); Bilirubin,Total < 0.1 mg/dL (0.2-1.3); Blood Urea Nitrogen 8 mg/dL (7-17); Calcium 8.4 mg/dL (8.4-10.2); Carbon Dioxide 32 mmol/L (22-30); Chloride 98 mmol/L (98-107); Estimated CRCL calculation 161 ml/min; Estimated Glomerular Filt Rate > 60; Glucose 140 mg/dL (65-110); Lipase 118 U/L (23-300); Potassium 3.6 mmol/L (3.4-5.0); Sodium 134 mmol/L (137-145)
[2021-01-27 23:50] LABS: Lactic Acid Reflex 1.8 mmol/L (0.7-2.1)
[2021-01-28 00:38] LABS: Add Urine Microscopic? NO; Appearance Urine Clear (Clear); Bilirubin Urine Negative (Negative); Blood Urine Negative (Negative); Color Urine Straw (Yellow); Glucose Urine UA Negative (Negative); Ketones Urine Negative (Negative); Leukocyte Esterase Ur Negative LEU/UL (Negative); Nitrate Urine Negative (Negative); Protein Urine Negative (Negative); Specific Grav Ur 1.008 (1.001-1.035); Urobilinogen Urine Negative mg/dL (<2.0)
[2021-01-28 00:59] VITALS: BP 130/74; PULSE 89; RESP 18; O2SAT 100
[2021-01-28] MEDS: MORPHINE SULFATE (*CRX) 4 MG/ML INJ IV PUSH (01:55)
[2021-01-28 02:44] VITALS: BP 119/76; PULSE 79; RESP 17; O2SAT 99
[2021-01-28] MEDS: HYDROmorphone HCL INJ (*CRX) 1 MG/ML SYR IV PUSH (03:17)
[2021-01-28 03:40] VITALS: BP 115/81; PULSE 70; RESP 19; O2SAT 100
== END 2021-01-28 03:40 | disposition home or self-care (01) ==
PROVIDERS: Emergency Provider Emergency Medicine; PCP Family Medicine
DX: G89.18 Other acute postprocedural pain (principal); R10.9 Unspecified abdominal pain; K43.9 Ventral hernia without obstruction or gangrene; K21.9 Gastro-esophageal reflux disease without esophagitis; E66.01 Morbid (severe) obesity due to excess calories; Z68.43 Body mass index [BMI] 50.0-59.9, adult
CPT/HCPCS: 36415; 74177; 80053; 81003; 83605; 83690; 85025; 96361; 96374; 96375; 99284; J1170; J2270; J2405; J7030; Q9967

== ENCOUNTER 2021-02-23 10:34 | Outpatient (CLI) | payer OTHER, SELFPAY ==
[2021-02-23 11:23] LABS: Basophils Percent Auto 0.5 % (0.2-1.2); Eosinophils Absolute Auto 0.4 K/mm3 (0-0.3); Eosinophils Percent Auto 5.1 % (0-4.4); Hematocrit 34.1 % (37.0-47.0); Hemoglobin 10.3 g/dL (12.0-15.0); Immature Granulocyte Absolute 0.03 K/mm3 (0.00-0.031); Immature Granulocyte Percent A 0.4 % (0-0.5); Lymphocytes Absolute Auto 2.19 K/mm3 (0.9-3.2); Lymphocytes Percent Auto 26.1 % (18.3-44.2); Mean Corpuscular HGB Conc 30.2 g/dl (32-36); Mean Corpuscular Hemoglobin 25.8 pg (26-34); Mean Corpuscular Volume 85.5 fl (80-100); Mean Platelet Volume 10.1 fl (7.4-10.4); Monocytes Absolute Auto 0.8 K/mm3 (0.1-0.6); Monocytes Percent Auto 9.7 % (2.6-8.5); Neutrophils Absolute Auto 4.9 K/mm3 (1.3-6.7); Neutrophils Percent Auto 58.2 % (45.5-73.1); Platelet Count Result 291 k/mm3 (150-375); Red Blood Count 3.99 M/mm3 (4.2-5.4); Red Cell Distribution Width 13.7 % (11.5-14.5); White Blood Count 8.4 K/mm3 (4.5-10.0)
== END 2021-02-23 10:35 | disposition home or self-care (01) ==
PROVIDERS: PCP Family Medicine; Visit Provider Obstetrics & Gynecology
DX: R42 Dizziness and giddiness (principal)
CPT/HCPCS: 36415; 85025

== ENCOUNTER 2021-04-26 07:49 | Outpatient (RCR) | payer OTHER, SELFPAY ==
[2021-03-01 08:29] VITALS: BMI 53.5
== END 2021-05-30 23:59 | disposition home or self-care (01) ==
LOC: ANHWOC 07:49
PROVIDERS: PCP Family Medicine; Visit Provider Obstetrics & Gynecology
DX: T81.31XD Disruption of external operation (surgical) wound, not elsewhere classified, subsequent encounter (principal)
CPT/HCPCS: 99212; A9270; G0463

== ENCOUNTER 2021-06-19 09:32 | Outpatient (CLI) | payer OTHER, SELFPAY ==
--- NOTE | 2021-06-19 09:44 | ECHO_ITS ---
Patient Info Name: Sabrina Vasquez Age: 50 years : 1970 Gender: Female Ht: 69 in Wt: 370 lbs BSA: 2.96 m2 HR: 73 bpm BP: 162 / 107 mmHg Exam Date: 06/19/2021 10:06 AM Exam Location: [facility] Patient Status: Outpatient Admit Date: 06/19/2021 Staff Ordering Physician: Shola Pryor NP Dirt Supervisor: Osmar Cotton RDCS, RT Attending Provider: Shola Pryor NP Referring Physician: Konstantin VENTURA; Exam Type: CA echo doppler color flow Study Info Indications R94.31 - Abnormal electrocardiogram ECG EKG Complete two-dimensional, color flow and Doppler transthoracic echocardiogram is performed. Strain analysis performed. Summary 1. Complete two-dimensional, color flow and Doppler transthoracic echocardiogram is performed. 2. Left ventricular chamber dimension is normal. 3. Left ventricular systolic function is normal, estimated at 55-60%. 4. There is moderately increased left ventricular wall thickness. 5. The left ventricular diastolic function is grade I diastolic dysfunction. 6. E/e' 8 is minimally elevated. 7. Global longitudinal strain is abnormal at -14.9%. 8. Left atrial chamber dimension is mildly enlarged. Left Ventricle E/e' 8 is minimally elevated. Global longitudinal strain is abnormal at -14.9%. Left ventricular chamber dimension is normal. Left ventricular systolic function is normal, estimated at 55-60%. There is moderately increased left ventricular wall thickness. The left ventricular diastolic function is grade I diastolic dysfunction. Right Ventricle Right ventricular systolic function is normal and with normal TAPSE 3.2 cm. Right ventricular chamber dimension is normal. Left Atria Left atrial chamber dimension is mildly enlarged. Right Atria Right atrial chamber dimension is normal. Aortic Valve The aortic valve is trileaflet. There is no aortic valve stenosis. There is no aortic valve regurgitation. Pulmonic Valve There is no pulmonic regurgitation. Mitral Valve There is no mitral valve stenosis. There is no mitral valve regurgitation. Tricuspid Valve There is no tricuspid valve regurgitation. Pericardium/Pleural There is no pericardial effusion. Inferior Vena Cava Normal inferior vena cava with >50% collapse upon inspiration consistent with normal right atrial pressure, 5 mmHg. Aorta The aortic root size at the sinus of Valsalva is normal. Left Ventricular Outflow Tract Name Value Normal LVOT 2D LVOT Diameter 2.1 cm LVOT Doppler LVOT Peak Gradient 6 mmHg LVOT Mean Gradient 3 mmHg LVOT VTI 25 cm LVOT VTI/AV VTI Ratio 0.9 LVOT Stroke Volume 90 ml LVOT CO 6.9 l/min LVOT CI 2.3 l/min/m2 Mitral Valve Name Value Normal MV Doppler
== END 2021-06-19 09:33 | disposition home or self-care (01) ==
LOC: ANHCARD 09:35
PROVIDERS: PCP Family Medicine; Visit Provider Nurse Practitioner Family
DX: R94.31 Abnormal electrocardiogram [ECG] [EKG] (principal)
CPT/HCPCS: 93306

== ENCOUNTER 2022-04-19 10:02 | Emergency (ER) | payer OTHER, SELFPAY ==
--- NOTE | 2022-04-19 10:03 | ED.ABDPAIN ---
HPI - Abdominal Pain General Chief Complaint: Abdominal Pain Stated Complaint: Abdominal Pain Time Seen by Provider: 04/19/22 10:03 Source: patient Mode of arrival: ambulatory Limitations: no limitations History of Present Illness HPI narrative: Ms. Jaison pollock is a 51-year-old female patient presenting to the clinic today with complaints of abdominal pain x1 week. She reports she has a history of umbilical hernia and is seeing her PCP for this. States that her PCP could not get her and she has been out of work for the past week. States that her pain is a 7/10 and it is a dull ache. Reports pain to the right side of the abdomen. History of cholecystectomy, hysterectomy, and laparoscopy. Denies any blood in the stool, change in bowels, or vomiting. Does report some nausea. States she is needing a work note to go back to work. She denies any fever or chills. Related Data Home Medications Medication Instructions Recorded Confirmed calcium carbonate 500 mg calcium 500 mg PO DAILY 12/25/20 01/07/22 (1,250 mg) tablet (Calcium 500) bqllujnd-hkxjdml-rjwj-iron 18 1 tablet PO DAILY 12/25/20 01/07/22 mg-FA 400 mcg-vit K 25 mcg tablet (One-A-Day Women's Complete) ferrous sulfate 325 mg (65 mg 650 mg PO DAILY 03/01/21 01/07/22 iron) tablet esomeprazole magnesium 40 mg 40 mg PO DAILY 04/19/22 04/19/22 capsule,delayed release (Nexium) Allergies Allergy/AdvReac Type Severity Reaction Status Date / Time Sulfa (Sulfonamide AdvReac Mild Skin Verified 04/19/22 10:04 Antibiotics) irritation sulfur dioxide AdvReac Mild Hives Verified 04/19/22 10:04 Review of Systems Review of Systems: Pertinent positives per HPI. Patient denies any fever, chills, rash, headache, visual changes, dizziness, cough, runny nose, sore throat, shortness of breath, chest pain, palpitations, nausea, vomiting, diarrhea, constipation, abdominal pain, or any urinary issues. [facility] Past Medical History Medical History Abdominal or pelvic swelling, mass, or lump, other specified site Abnormal weight gain Anxiety Body mass index (BMI) of 50-59.9 in adult (11/06/17) Depression with anxiety Dietary counseling and surveillance (01/15/18) Elevated glucose Azael Stuart infection Family history of heart attack Fibroids GERD (gastroesophageal reflux disease) Lipoma of flank Low calcium levels Low vitamin D level Morbidly obese Rash Subcutaneous mass Surgical History Surgical History H/O: hysterectomy History of bilateral salpingo-oophorectomy 01/22/21 History of cholecystectomy History of endometrial ablation History of hysterectomy, supracervical 01/22/21, with extensive lysis of adhesions History of laparoscopy Family History Family History Mother Diabetes mellitus Hypertension Grandparent Diabetes mellitus Family history of cardiovascular disease Malignant neoplasm of prostate Father Hypertension Sibling Hypertension Other Cerebrovascular accident Family history of arthritis Social History Social History Smoking status: Never smoker Second hand tobacco smoke exposure: No Alcohol intake: never Substance use: never Substance use type: does not use 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 There is no relevant family history pertinent to the patient complaint. Exam Narrative: General: Well-developed, well nourished, in no apparent distress. Head: Normocephalic, atraumatic. Cardio: Regular rate and rhythm, s1 and s2 n
[2022-04-19 10:09] VITALS: BP 147/78; PULSE 80; RESP 18; TEMP 36; O2SAT 96
== END 2022-04-19 10:30 | disposition home or self-care (01) ==
PROVIDERS: Emergency Provider Nurse Practitioner Family; PCP Family Medicine
DX: R10.31 Right lower quadrant pain (principal); Z87.19 Personal history of other diseases of the digestive system; K21.9 Gastro-esophageal reflux disease without esophagitis; E66.01 Morbid (severe) obesity due to excess calories; Z68.45 Body mass index [BMI] 70 or greater, adult
CPT/HCPCS: 99211; G0463

== ENCOUNTER 2022-06-27 08:28 | Outpatient (CLI) | payer OTHER, SELFPAY ==
--- NOTE | 2022-07-02 15:39 | WPDHOMESLEEP ---
Sleep Study - Home Unattended Date of Study: 06/27/22 Ordering Provider: Benny Jones MD Interpreting Provider: Thi Gonzales, DO Home Sleep Study Type: Watch PAT Height: 1.75 m Weight: 169.644 kg Body Mass Index: 55.2 Neck Circumference (inches): 20 [place]: 7 Reason for Sleep Study Multiple nighttime awakenings Sleep History The patient is a 51-year-old female with hypertension, anxiety, depression, GERD and insomnia that had a sleep study ordered by her primary care for evaluation of sleep disturbances. The patient denies awakening from sleep short of breath. She occasionally awakens at night with heartburn, belching or cough. She constantly snores but it is rarely loud enough that others complain. She constantly has trouble sleeping when she has a cold. She denies waking up gasping for air throughout the night. She denies having breathing problems at night observed by herself or others. She constantly sweats excessively at night. She denies having heart palpitations or irregular heartbeats during the night. She frequently falls asleep during the day but never while driving. She rarely experiences loss of muscle tone when extremely emotional. She denies having trouble at school or work due to sleepiness. She denies feeling unable to move when waking up or falling asleep. She occasionally experiences vivid dreamlike scenes upon awakening or falling asleep. She rarely feels afraid of going to sleep. She rarely has nightmares. She occasionally remembers her dreams. She constantly has thoughts racing through her mind. She constantly feels sad, depressed and anxious. She constantly has muscular tension. She occasionally notices parts of her body jerk. She denies kicking during the night. She denies having crawling and aching feelings in her legs. She rarely has leg pain during the night. She denies grinding her teeth during sleep and denies awakening with morning jaw pain. She is occasionally bothered by pain during the day but never awakened by pain during the night. She occasionally wakes up feeling stiff in the morning. She constantly wakes up with sore or achy muscles. She frequently wakes up with pain in the neck, spine or other joints. She goes to bed between 830-9 p.m. on both weekdays and weekends. It takes her 15 minutes to fall asleep. She wakes up 5 times throughout the night for unknown reasons. When she awakens, she will try to fall back asleep. If she is unable to fall back asleep she will watch television. It often takes her 2-3 hours to fall back asleep. She wakes up at 4:30 a.m. on weekdays and at 6:00 a.m. on the weekends. She will stay in bed for 30 minutes after waking up on the weekends. She currently lives with her . She does not consume any caffeinated beverages within 2 hours of bedtime. She does not engage in physical exercise before bedtime. She will watch television before falling asleep. She will take naps in the afternoon or the evening but they are not refreshing. She drinks 1 caffeinated beverage per day. She denies tobacco, alcohol and recreational drug use. [facility] Past Medical History Medical History Abdominal or pelvic swelling, mass, or lump, other specified site Abnormal weight gain Anxiety Body mass index (BMI) of 50-59.9 in adult (11/06/17) Depression with anxiety Dietary counseling and surveillance (01/15/18) Elevated glucose Azael Stuart infection Family history of heart attack Fibroids GERD (gastroesophageal reflux disease) Lipoma of flank Low calcium levels Low vitamin D level Morbidly obese Rash Subcutaneous mass Surgical History Surgical History H/O: hysterectomy History of bilateral salpingo-oophorectomy 01/22/21 History of cholecystectomy History of endometrial ablation History of hysterectomy, supracervical 01/22/21, with exte
[2022-07-02 15:47] VITALS: BMI 55.2
== END 2022-07-01 08:08 | disposition home or self-care (01) ==
LOC: ANHCSM 08:29
PROVIDERS: PCP Family Medicine; Visit Provider Family Medicine
DX: G47.33 Obstructive sleep apnea (adult) (pediatric) (principal); G47.10 Hypersomnia, unspecified; R06.83 Snoring
CPT/HCPCS: 95800

== ENCOUNTER 2023-03-31 08:59 | Outpatient (CLI) | payer OTHER, SELFPAY ==
--- NOTE | ~2023-03-31 | US_ITS ---
Pelvic ultrasound. Clinical History: Pelvic pain, status post hysterectomy Technique: Realtime transabdominal and transvaginal scanning of the pelvis was performed. Color flow Doppler and Doppler spectral analysis were performed. Findings: The uterus is absent, compatible prior hysterectomy. Neither ovary seen. No adnexal/pelvic mass seen. There is no evidence of free fluid in the cul de sac. Impression: Status post hysterectomy and bilateral salpingo-oophorectomy. No abnormal mass lesion or fluid seen. Reviewed, dictated and finalized at location . Impression: Status post hysterectomy and bilateral salpingo-oophorectomy. No abnormal mass lesion or fluid seen.
== END 2023-03-31 09:00 ==
PROVIDERS: PCP Physician Assistant; Visit Provider Physician Assistant
DX: Z09 Encounter for follow-up examination after completed treatment for conditions other than malignant neoplasm (principal)
CPT/HCPCS: 76830; 76856

== ENCOUNTER 2023-04-25 10:41 | Outpatient (CLI) | payer OTHER, SELFPAY ==
--- NOTE | ~2023-04-25 | CT_ITS ---
CT of the Abdomen and Pelvis: Indication: Ventral hernia Technique: 2.5 mm axial scans were obtained through the abdomen and pelvis following intravenous adm inistration of 100 cc of Omnipaque 350. Dose reduction technique was used on this scan by utilizing a utomated exposure control and iterative reconstruction technique. The dose-length product (DLP) was 1 181.36 mGy-cm. COMPARISON: 01/28/2021 Findings: Scans through the lung bases are unremarkable. The liver, spleen, pancreas, adrenals and kidneys are within normal limits. Cholecystectomy clips are present. No evidence of aortic aneurysm. No lymphadenopathy. There is a very large ventral hernia, containing numerous small bowel loops, the ileocecal junction, cecum, ascending colon, and proximal half of the transverse colon. No bowel obstruction or bowel wall thickening seen. There is a separate moderate sized fat-containing hernia at the umbilical region, j ust left of the aforementioned hernia. Images through the pelvis were performed. Urinary bladder unremarkable. No adnexal mass seen. No asci tonja. Impression: Very large ventral hernia containing multiple small bowel loops, ileocecal junction, cecum, ascending colon, and proximal half of the transverse colon. No bowel obstruction or bowel wall thickening. Additional moderate fat-containing hernia at the umbilical region, just left of the aforementioned he rnia. Reviewed, dictated and finalized at location [facility] Impression: Very large ventral hernia containing multiple small bowel loops, ileocecal junc tion, cecum, ascending colon, and proximal half of the transverse colon. No bow el obstruction or bowel wall thickening. Additional moderate fat-containing hernia at the umbilical region, just left of the aforementioned hernia.
[2023-04-25 11:01] LABS: Estimated Glomerular Filt Rate > 60
== END 2023-04-25 10:42 ==
DX: K43.6 Other and unspecified ventral hernia with obstruction, without gangrene (principal)
CPT/HCPCS: 74177; Q9967

== ENCOUNTER 2023-08-03 14:38 | Emergency (ER) | payer OTHER, SELFPAY ==
[2023-08-03 14:53] VITALS: BP 116/84; PULSE 79; RESP 16; TEMP 36.4; O2SAT 99
--- NOTE | 2023-08-03 16:23 | PC.NURSE ---
Pt was A&Ox4 left before being seen.
== END 2023-08-04 05:05 | disposition left against medical advice (07) ==
DX: R19.8 Other specified symptoms and signs involving the digestive system and abdomen (principal)
CPT/HCPCS: 99199

== ENCOUNTER 2023-08-24 09:03 | Emergency (ER) | payer OTHER, SELFPAY ==
[2023-08-24 09:27] VITALS: BP 150/92; PULSE 97; RESP 16; TEMP 36.1; O2SAT 95
--- NOTE | 2023-08-24 09:41 | ED.URI ---
HPI - URI/Sore Throat General Chief Complaint: Upper Respiratory Infection Stated Complaint: hurts to swallow Time Seen by Provider: 08/24/23 09:41 History of Present Illness HPI Narrative: 53-year-old female presenting for complaint of sore throat. onset yesterday. Reports painful swallow radiating to both ears. Endorses associated nasal congestion and cough. Denies shortness of breath, wheezing, nausea, vomiting, diarrhea, fevers or chills. Has not taken anything for symptoms. 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 Related Data Home Medications Medication Instructions Recorded Confirmed calcium carbonate 500 mg calcium 500 mg PO DAILY 12/25/20 08/24/23 (1,250 mg) tablet (Calcium 500) trbdjwxu-hukpmyl-rdru-iron 18 1 tablet PO DAILY 12/25/20 08/24/23 mg-FA 400 mcg-vit K 25 mcg tablet (One-A-Day Women's Complete(with vit K)) esomeprazole magnesium 40 mg 40 mg PO DAILY 04/19/22 08/24/23 capsule,delayed release (Nexium) conjugated estrogens 0.625 mg/gram 0.625 mg vaginal DAILY 04/21/23 08/24/23 vaginal cream Allergies Allergy/AdvReac Type Severity Reaction Status Date / Time Sulfa (Sulfonamide AdvReac Mild Skin Verified 08/24/23 09:22 Antibiotics) irritation sulfur dioxide AdvReac Mild Hives Verified 08/24/23 09:22 Review of Systems Review of Systems: CONSTITUTIONAL: Denies body aches, fever, chills, or sweats. EYES: Denies visual changes, redness, or discharge. ENT: Reports rhinorrhea, congestion, sore throat CARDIOVASCULAR: Denies chest pain, palpitations, or edema. RESPIRATORY: Denies dyspnea. GASTROINTESTINAL: Denies abdominal pain, nausea, vomiting, or diarrhea. SKIN: Denies rash, itching, or wounds. MUSCULOSKELETAL: Denies back pain, joint pain, or myalgia. NEUROLOGIC: Denies headache PMFSH Past Medical History Medical History Abdominal or pelvic swelling, mass, or lump, other specified site Abnormal weight gain Anxiety Body mass index (BMI) of 50-59.9 in adult (11/06/17) Depression with anxiety Dietary counseling and surveillance (01/15/18) Elevated glucose Azael Stuart infection Family history of heart attack Fibroids GERD (gastroesophageal reflux disease) Lipoma of flank Low calcium levels Low vitamin D level Morbidly obese Rash Subcutaneous mass Surgical History Surgical History H/O: hysterectomy History of bilateral salpingo-oophorectomy 01/22/21 History of cholecystectomy History of endometrial ablation History of hysterectomy, supracervical 01/22/21, with extensive lysis of adhesions History of laparoscopy Family History Family History Mother Diabetes mellitus Hypertension Grandparent Diabetes mellitus Family history of cardiovascular disease Malignant neoplasm of prostate Father Hypertension Sibling Hypertension Other Cerebrovascular accident Family history of arthritis Social History Social History Smoking status: Never smoker Second hand tobacco smoke exposure: No Alcohol intake: never Substance use: never Substance use type: does not use Living arrangements: with family Occupation/Education: occupation 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 EYES: conjunctivae clear ENT: Mucous membranes moist. TM pearly dan with normal light reflex bilaterally; no tragal tenderness. Oropharynx erythematous without lesions. Tonsils enlarged 3+ with exudate. No drooling, no hoarseness, no trismus, uvula midline. No tripod positioning, hot potato voice, or soft palate swelling. NECK: Supple. No lymphadenopathy CHEST:
== END 2023-08-24 09:51 | disposition home or self-care (01) ==
PROVIDERS: Emergency Provider Nurse Practitioner Family; PCP Family Medicine
DX: J02.0 Streptococcal pharyngitis (principal); K21.9 Gastro-esophageal reflux disease without esophagitis; E66.01 Morbid (severe) obesity due to excess calories
CPT/HCPCS: 87880; 99213; G0463

== ENCOUNTER 2023-09-01 08:57 | Outpatient (CLI) | payer OTHER, SELFPAY ==
[2023-09-01 09:33] LABS: Hematocrit 44.5 % (37.0-47.0); Hemoglobin 14.1 g/dL (12.0-15.0); Mean Corpuscular HGB Conc 31.7 g/dl (32-36); Mean Corpuscular Hemoglobin 28.5 pg (26-34); Mean Corpuscular Volume 90.1 fl (80-100); Mean Platelet Volume 9.9 fl (7.4-10.4); Platelet Count Result 358 k/mm3 (150-375); Red Blood Count 4.94 M/mm3 (4.2-5.4); White Blood Count 11.7 K/mm3 (4.5-10.0)
[2023-09-01 09:43] LABS: Alanine Aminotransferase 23 U/L (6-35); Alkaline Phosphatase 101 U/L (38-126); Anion Gap 9 mmol/L (8-16); Aspartate Amino Transferase 34 U/L (14-36); Bilirubin,Total 0.5 mg/dL (0.2-1.3); Blood Urea Nitrogen 12 mg/dL (7-17); Calcium 8.6 mg/dL (8.4-10.2); Carbon Dioxide 26 mmol/L (22-30); Chloride 102 mmol/L (98-107); Cholesterol 137 mg/dL (0-200); Estimated Glomerular Filt Rate > 60; Glucose 112 mg/dL (65-110); HDL Direct 33 mg/dL; Potassium 4.1 mmol/L (3.4-5.0); Sodium 137 mmol/L (137-145); Triglycerides 93 mg/dL (<150)
[2023-09-01 09:53] LABS: LDL Cholesterol Direct 90 mg/dL
[2023-09-01 10:17] LABS: Free T4 Free Thyroxine 1.01 ng/mL (0.78-2.19)
== END 2023-09-01 08:58 | disposition home or self-care (01) ==
PROVIDERS: PCP Family Medicine; Visit Provider Nurse Practitioner Adult Health
DX: E66.01 Morbid (severe) obesity due to excess calories (principal); Z13.29 Encounter for screening for other suspected endocrine disorder; Z13.220 Encounter for screening for lipoid disorders
CPT/HCPCS: 36415; 80053; 80061; 84439; 84443; 85027

== ENCOUNTER 2024-08-10 10:22 | Emergency (ER) | payer OTHER, SELFPAY ==
[2024-08-10 10:29] VITALS: BP 140/71; PULSE 91; RESP 16; TEMP 36.4; O2SAT 98
--- NOTE | 2024-08-10 10:36 | ED.LOWEXIN ---
HPI - Extremity Injury (Lower) General Chief Complaint: Extremity Injury, Lower Stated Complaint: Leg Pain Time Seen by Provider: 08/10/24 10:37 Source: patient Mode of arrival: ambulatory Limitations: no limitations History of Present Illness HPI Narrative: 54 y/o female presented for c/o right leg pain for about 2 weeks. Pain is in the thigh and front/back of knee. Pain is worse when walking. Rates pain 12/10 and reports occasional numbness to the foot. Has been getting worse not improving. Has taken Aleve, states she has to take 4 tablets and still has minimal improvement in pain. Denies chest pain, palpitations, n/v/d/f/c. Was seen by pcp for lower leg swelling and has been wearing compression stockings. 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 Related Data Home Medications ?Medication ?Instructions ?Recorded ?Confirmed ?Last Taken ?Type calcium carbonate (Calcium 500) 500 mg PO DAILY 12/25/20 07/12/24 01/16/21 History mxwolmjw-pgznmbp-dqeh-iron 18 1 tablet PO DAILY 12/25/20 07/12/24 01/16/21 History mg-FA 400 mcg-vit K 25 mcg tablet (One-A-Day Women's Complete(with vit K)) esomeprazole magnesium 40 mg 40 mg PO DAILY 04/19/22 07/12/24 Unknown History capsule,delayed release (Nexium) Allergies Allergy/AdvReac Type Severity Reaction Status Date / Time Sulfa (Sulfonamide AdvReac Mild Skin Verified 08/10/24 10:36 Antibiotics) irritation sulfur dioxide AdvReac Mild Hives Verified 08/10/24 10:36 Review of Systems Review of Systems: per HPI All systems reviewed & are unremarkable except as noted in HPI and below PMFSH Past Medical History Medical History Hyperglycemia Leukocytosis Screening for lipid disorders Screening for thyroid disorder Abdominal or pelvic swelling, mass, or lump, other specified site Abnormal weight gain Body mass index (BMI) of 50-59.9 in adult (11/06/17) Depression with anxiety Dietary counseling and surveillance (01/15/18) Elevated glucose Azael Stuart infection Family history of heart attack Anxiety GERD (gastroesophageal reflux disease) Fibroids Lipoma of flank Low calcium levels Low vitamin D level Rash Subcutaneous mass Morbidly obese Surgical History Surgical History H/O: hysterectomy History of bilateral salpingo-oophorectomy 01/22/21 History of hysterectomy, supracervical 01/22/21, with extensive lysis of adhesions History of laparoscopy History of cholecystectomy History of endometrial ablation Family History Family History Mother Diabetes mellitus Hypertension Grandparent Diabetes mellitus Family history of cardiovascular disease Malignant neoplasm of prostate Father Hypertension Sibling Hypertension Other Cerebrovascular accident Family history of arthritis Social History Social History Smoking status: Never smoker Second hand tobacco smoke exposure: No Alcohol intake: never Substance use: never Substance use type: does not use Living arrangements: with family Occupation/Education: occupation 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 Please see nursing chart for further information. There is no relevant family history pertinent to the presenting complaint Exam Narrative: GENERAL: Well-appearing, no distress, morbidly obese CHEST: Speaks in full sentences. No respiratory distress. HEART: Regular rate and rhythm. Normal and equal peripheral pulses. EXTREMITIES: RLE has normal strength and sensation, normal range of motion at knee hip and ankle, but endorses knee pain with movement. Distal hamstring area is tender with palpation, Medial thigh and bilateral aspects of the knee are tender with palpation. Moderate swelling is noted to right knee into the lower leg (measures 21.5 cm on left; 17 cm on right). Negative homans sign, no calf tenderness with palpation. No ecchymosis or temp changes. No open wounds, or obvious deformity; pulse palpable and equal bilaterally, skin warm, dry, pink. Capillary refill less than 3 seconds. SKIN: Warm, dry NEURO: Alert and oriented x3. PSYCH: Normal mood and affect Course Course Emergency Course: Patient is aware of diagnosis, understands and agrees to treatment plan. Anticipatory guidance given. Patient agrees to follow-up as directed and is aware of reasons to seek care at the emergency department. Portions of this record may have been created with voice recognition software Level of Care: Express Care Visit Vital Signs Vital signs: Vital Signs Temperature 97.5 F L 08/10/24 10:29 Pulse Rate 91 08/10/24 10:29 Respiratory Rate 16 08/10/24 10:29 Blood Pressure 140/71 08/10/24 10:29 Pulse Oximetry 98 08/10/24 10:29 Temperature 97.5 F L 08/10/24 10:29 Pulse Rate 91 08/10/24 10:29 Respiratory Rate 16 08/10/24 10:29 Blood Pressure 140/71 08/10/24 10:29 Pulse Oximetry 98 08/10/24 10:29 Reviewed Transfer Transfered to: [place] Transportation: Other (Private vehicle) Transfer rationale: Pt is agreeable to transfer. Requests transfer to [facility] via private vehicle. Risks of transportation reviewed with pt including injury, worsening of condition and . v/u. Report called to hospital, spoke with Deandre Cm PA-C, accepting physician. Pt is in stable condition at time of transfer. Advised to remain NPO and go directly to the hospital. MDM - Extremity Injury (Lower) MDM Narrative Medical decision making narrative: Discussed physical exam findings. Advised ER transfer for further evaluation. She requests [facility]. Differential Diagnosis Differential diagnosis: Likely other (DVT, CHF, PVD, venous insufficiency, medication related, renal failure, gravitational edema, cellulitis) Discharge Plan Discharge Clinical Impression: Acute pain of right lower extremity Patient Disposition: Acute Care Hospital Condition: Stable Patient Language: Malawian Prescriptions: No Action esomeprazole magnesium [Nexium] 40 mg Capsule,Delayed Release(Dr/Ec) 40 mg PO DAILY calcium carbonate [Calcium 500] 500 mg calcium (1,250 mg) tablet 500 mg PO DAILY One-A-Day Women's Complete(vK) 18 mg-400 mcg- 25 mcg tablet 1 tablet PO DAILY bupropion HCl 300 mg tablet extended release 24 hr See Rx Instructions .ROUTE .COMPLEX Qty: 90 0RF Dose Instruction: TAKE 1 TABLET BY MOUTH EVERY MORNING Rx Instructions: TAKE 1 TABLET BY MOUTH EVERY MORNING fluoxetine 60 mg tablet See Rx Instructions .ROUTE .COMPLEX Qty: 90 0RF Dose Instruction: TAKE 1 TABLET BY MOUTH DAILY Rx Instructions: TAKE 1 TABLET BY MOUTH DAILY lisinopril 10 mg tablet 10 mg PO DAILY Qty: 90 3RF cyclobenzaprine 5 mg tablet 5 mg PO TID PRN (Reason: muscle spasm) Qty: 30 0RF Follow-up/Referrals: PHYSICIAN,BLAST FURNACE KEEPER [Primary Care Provider] - Time of Disposition: 11:10
== END 2024-08-10 11:00 | disposition short-term general hospital (02) ==
LOC: EXPGOSH 10:23
PROVIDERS: Emergency Provider Nurse Practitioner Family
DX: M79.651 Pain in right thigh (principal); M25.561 Pain in right knee; K21.9 Gastro-esophageal reflux disease without esophagitis; E66.01 Morbid (severe) obesity due to excess calories; Z68.43 Body mass index [BMI] 50.0-59.9, adult; F41.9 Anxiety disorder, unspecified; F32.A Depression, unspecified
CPT/HCPCS: 99212; G0463

== ENCOUNTER 2024-08-10 11:26 | Emergency (ER) | payer OTHER, SELFPAY ==
--- NOTE | ~2024-08-10 | US_ITS ---
EXAMINATION: US venous doppler LE RT DATE: 08/10/2024 15:01 INDICATION: Right lower extremity pain TECHNIQUE: Grayscale ultrasound images without and with compression and Doppler ultrasound images of the right lower extremity veins were obtained. COMPARISON: None. FINDINGS: The visualized portions of right common femoral vein, profunda (deep) femoral vein, femoral vein, pop liteal vein, peroneal veins, posterior tibial veins, and greater saphenous vein outflow are patent. IMPRESSION: 1. No deep venous thrombosis. Reviewed, dictated and finalized at location A. TENDER
--- NOTE | ~2024-08-10 | XR_ITS ---
EXAMINATION: XR knee RT 3V DATE: 08/10/2024 15:16 INDICATION: 2 weeks of nontraumatic right knee pain TECHNIQUE: AP, oblique and lateral views of the right knee were obtained. COMPARISON: Radiographs dated 05/07/2014 and MRI dated 05/03/2013 FINDINGS: There is approximately 5 mm lateral subluxation of the tibia relative to the femoral condyles. There is mild joint space narrowing and moderate size marginal osteophytes at all 3 compartments of the kne e. No fracture. Moderate sized enthesophytes at the patellar insertion of the proximal and distal pat sameera. There is also a small region of heterotopic ossification along the cephalad margin of the smith la. Small right knee joint effusion. IMPRESSION: 1. Mild tricompartmental osteoarthritis the right knee with small knee joint effusion. Reviewed, dictated and finalized at location B. CTIVE IMPRESSION: 1. Mild tricompartmental osteoarthritis the right knee with small knee joint ef fusion.
--- NOTE | ~2024-08-10 | XR_ITS ---
EXAMINATION: XR hip RT 2V w AP pelvis DATE: 08/10/2024 15:16 INDICATION: Right hip pain. TECHNIQUE: An anteroposterior view of the pelvis on 2 radiographs and 2 views on 3 radiographs of the right hip were obtained. COMPARISON: None. FINDINGS: There is lumbar levocurvature and severe spondylosis. No fracture. There is mild osteoarthr itis of the hips. IMPRESSION: 1. Mild osteoarthritis of the hips. Reviewed, dictated and finalized at location A. RGLASS MODEL MAKER
[2024-08-10 11:49] VITALS: BP 139/110; PULSE 96; RESP 22; TEMP 36.4; O2SAT 95
--- OUTSIDE RECORDS SUMMARY | 2024-08-10 13:36 | XMS_ITS | Clinical Summary ---
Author Organization [facility] Address [address] [place] [address] Care Team Providers Care Secretary To The Vice President Name Role Phone Justine Finley Primary Care Provider [phone] Allergies Active Allergy Reactions Criticality Noted Date Comments Sulfa Antibiotics Rash High 10/23/2016 Reaction: rash, Rash Medications FEROSUL 325 (65 Fe) MG tablet Take 1 tablet (325 mg total) by mouth 3 (three) times daily. 0 Active FLUoxetine HCl 60 MG Tab Take 1 tablet by mouth daily. 1 Active Multiple Vitamins-Minera ls (ONE-A-DAY WOMENS OR) Active Calcium Carbonate-Vit D-Min (CALCIUM 1200 OR) Active omeprazole EC 20 MG Tab EC tablet Active DICLOFENAC EC 75 MG tabletIndicatio ns:Pelvic pain TAKE 1 TABLET(75 MG) BY MOUTH TWICE DAILY 60 tablet 1 Active Multiple Vitamins-Minera ls (MULTIVIT/MULTI MINERAL ADULT OR) Take by mouth daily. Womens multivitamin Active traZODone (DESYREL) 50 MG tablet Take 1 tablet (50 mg total) by mouth nightly as needed for Sleep. 2 Active buPROPion XL (WELLBUTRIN XL) 300 MG 24 hr tablet Take 1 tablet (300 mg total) by mouth every morning. 3 Active lisinopril (PRINIVIL) 10 MG tablet Take 1 tablet (10 mg total) by mouth daily. 3 Active Active Problems Problem Noted Date Diagnosed Date Mass, ovarian 02/14/2017 Extreme obesity 12/03/2016 Chest pressure 10/23/2016 Depression with anxiety 10/23/2016 GERD (gastroesophageal reflux disease) 7 Grief reaction 10/23/2016 Vitamin D deficiency 10/23/2016 PCOS (polycystic ovarian syndrome) 10/23/2016 Metabolic syndrome 10/23/2016 Resolved Problems Problem Noted Date Diagnosed Date Resolved Date Encounter for preventive health examination 01/05/2014 10/23/2020 Family History Medical History Relation Comments Heart Disease Father passed from hear t attack Hypertension Father Cancer Maternal Grandfather bone Diabetes Maternal Grandfather type 2 Hypertension Maternal Grandfather Stroke Maternal Grandfather CHD Maternal Grandmother Diabetes Mother type 2 Hypertension Mother PCOS Mother COPD Paternal Grandfather Cancer Paternal Grandfather skin blood clot Paternal Grandfather tobacco user Paternal Grandfather Heart Disease Paternal Grandmother passsed fro m heart attack Heart Disease Paternal Uncle passed from hear t attack Relation Status Comments Father Maternal Grandfather Maternal Grandmother Mother Alive Paternal Grandfather Paternal Grandmother Paternal Uncle Social History Tobacco Use Types Packs/Day Years Used Date Smoking Tobacco: Never Smokeless Tobacco: Never Tobacco Cessation:Counseling Given: Not Answered Alcohol Use Standard Drinks/Week Comments Never 0 (1 standard drink = 0.6 oz pur e alcohol) AUDIT-C Answer Date Recorded Q1: How often do you have a drink containing alc ohol? Never 10/16/2020 Average Number of Drinks Not on file 021 Q3: How often do you have si x or more drinks on one occasion? Never 10/16/2020 PHQ-2 Answer Date Recorded Patient Health Questionnaire-2 Score 0 03/25/2023 Comments Unknown Sex and Gender Information Value Date Recorded Sex Assigned at Not on file Legal Sex Female 8:09 AM CDT Gender Identity Not on file Sexual Orientation Not on file Last Filed Vital Signs Vital Sign Reading Time Taken Comments Blood Pressure 115/70 03/25/2023 10:53 AM CDT Pulse 80 03/25/2023 10:38 AM CDT Temperature 36.7 C (98 F) 03/25/2023 10:38 AM CDT Respiratory Rate 18 03/25/2023 10:38 AM CDT Oxygen Saturation 93% 03/25/2023 10:38 AM CDT Inhaled Oxygen Concentration - - Weight 176.4 kg (389 lb) 03/25/2023 10:38 AM CDT Height 175.3 cm (5' 9 ) 03/25/2023 10:38 AM CDT Body Mass Index 57.45 03/25/2023 10:38 AM CDT Plan of Treatment Health Maintenance Due Date Last Done Comments Colorectal Cancer Screening Colonoscopy (10 Years) 1970 Hepatitis C 1988 DTaP, Tdap and Td Vaccines ( 1 - Tdap) 1989 Hepatitis B Vaccines (1 of 3 - 19+ 3-dose series) 1989 Zoster Vaccines (1 of 2) 2020 Mammogram Screening 11/21/2022 11/21/2020 COVID-19 Vaccine (2 - Novava x series) 02/15/2024 10/16/2020 (Patient Reported) Influenza Adult (#1) 2024 Annual Physical 03/25/2024 03/25/2023 PHQ-2 (Physician [place]) 03/25/2024 03/25/2023 PHQ-2 (Physician [place]) 06/16/2024 03/25/2023 Meningococcal B Vaccine Aged Out No l onger eligible based on patient's age to complete this topic Meningococcal Vaccine Aged Out No sharon yomi eligible based on patient's age to complete this topic Pneumococcal Vaccine: Pediatrics (0 to 5 Years) and At-Risk Patients (6 to 64 Years) Aged Out No longer eligible b ased on patient's age to complete this topic RSV Immunizations Under 20 Months Aged Out No longer eligible b ased on patient's age to complete this topic Procedures Procedure Name Priority Date/Time Associated Diagnosis Comments MAMMOGRAM GENERIC (SCAN ORDER) 11/21/2020 from Last 3 Months or Most Recently Relevant to Health Maintenance Results * MAMMOGRAM GENERIC (11/21/2020) Anatomical Region Laterality Modality Other 11/21/2020 Narrative 11/21/2020 Ordered by an unspecified provider. us Documents Scanned SCANNING Final Result from Last 3 Months or Most Recently Relevant to Health Maintenance Insurance [facility] Care Teams Secretary To The Vice President Relationship Specialty [place] [address] [place] [address] PCP - General PHYSICIAN PROFESSOR OF LEGAL STUDIES 10/16/20
--- OUTSIDE RECORDS SUMMARY | 2024-08-10 13:36 | XMS_ITS | Referral Summary ---
Author Organization [facility] [address] Address [address] [place] [address] Care Team Providers Care Drum Plater Name Role Phone Brie Zuniga MD Unavailable [phone] Brie Zuniga MD Primary Care Provider [phone] Allergies Active Allergy Reactions Criticality Noted Date Comments Sulfa (Sulfonamide Antibiotics) Rash High 10/23/2016 Reaction: rash, Rash Medications FLUoxetine (PROzac) 20 mg capsule take 1 capsule by oral route 3 times every day in the morning 0 0 11/14/2016 Active omeprazole (PriLOSEC) 20 mg capsule take 1 capsule by oral route every day before a meal 0 0 11/14/2016 Active omeprazole (PriLOSEC) 20 mg capsule daily 02/14/2017 Active estradioL (ESTRACE) 2 mg tablet Take 2 mg by mouth daily 03/16/2021 Active calcium carbonate-vitam in D3 1,250mg (500mg elemental) - 5 mcg (200 units) per tablet Take by mouth Active mv,calcium,min/ iron/folic/vitK (MULTI FOR HER ORAL) Take by mouth Active ferrous sulfate 325 mg (65 mg of elemental iron) tablet Take 1 tablet by mouth 3 (three) times a day 02/02/2020 Active Active Problems Problem Noted Date Diagnosed Date BMI 50.0-59.9, adult 05/14/2021 Social History Tobacco Use Types Packs/Day Years Used Date Smoking Tobacco: Never Smokeless Tobacco: Never Alcohol Use Standard Drinks/Week Comments No 0 (1 standard drink = 0.6 oz pur e alcohol) AUDIT-C Answer Date Recorded Q1: How often do you have a drink containing alc ohol? Never 05/14/2021 Average Number of Drinks Not on file 021 Frequency of Binge Drinking Not on file 04/17 Comments Unknown Sex and Gender Information Value Date Recorded Sex Assigned at Not on file Legal Sex Female 10:54 AM CDT Gender Identity Female 01/07/2023 11:15 AM CDT Sexual Orientation Straight 01/07/2023 11 :15 AM CDT Last Filed Vital Signs Vital Sign Reading Time Taken Comments Blood Pressure 149/95 05/14/2021 9:07 AM MANAGER PRIMARY Pulse 102 05/14/2021 9:07 AM MANAGER PRIMARY Temperature 36.1 C (96.9 F) 05/14/2021 9:07 AM MANAGER PRIMARY Respiratory Rate - - Oxygen Saturation 96% 04/11/2017 10: 19 AM CDT Inhaled Oxygen Concentration - - Weight 168.7 kg (372 lb) 06/13/2021 1:2 6 PM MANAGER PRIMARY reported by pt Height 172.7 cm (5' 8 ) 06/13/2021 1:26 PM MANAGER PRIMARY Body Mass Index 56.56 06/13/2021 1:26 PM MANAGER PRIMARY Plan of Treatment Not on file Insurance [facility] [employer] [employer] [facility] [employer] Care Teams Drum Plater Relationship Specialty [place] [address] [address] PCP - General 02/14/17 [place] [address] [address] 11/21/16
--- OUTSIDE RECORDS SUMMARY | 2024-08-10 13:36 | XMS_ITS | Clinical Summary ---
Author Organization [facility] [address] Address [address] [place] [address] Care Team Providers Care Channel Director Name Role Phone Brie Zuniga MD Unavailable [phone] Brie Zuniga MD Primary Care Provider [phone] Allergies Active Allergy Reactions Criticality Noted Date [...] Date Diagnosed Date BMI 50.0-59.9, adult 05/14/2021 Surgical History Surgery Date Site/Laterality Comments UMBILICAL HERNIA REPAIR 06/16/2000 - 06/15/2001 HYSTERECTOMY 01/22/2021 Dr. Flores at [facility] CHOLECYSTECTOMY Medical History Medical History Date Comments GERD (gastroesophageal reflux disease) Morbid obesity with BMI of 50.0-59.9, adult (HCC ) Anxiety PCOS (polycystic ovarian syndrome) Incisional hernia Family History Medical History Relation Name Comments Heart attack Father Myocardial infa rction; Cause of : Myocardial infarction Heart disease Father Family history of cardiac disorder - (Added by TW Conv) Diabetes Mother Diabetes mellit us; /Family history of diabetes mellitus - (Added by TW Conv) Hypertension Mother Hypertension; Other Mother Alive and well; Polycystic ovary syndrome Mother Fa kenia history of polycystic ovarian syndrome - (Added by Conv) Heart attack Sister Family history of myocardial infarction - (Added by Conv) Relation Name Status Comments Father (Age 47) Mother Alive Sister Social History Tobacco Use Types Packs/Day Years [...] Orientation Straight 01/07/2023 11 :15 AM CDT Obstetrics History Last Filed Vital Signs Vital Sign Reading Time Taken Comments Blood Pressure 149/95 05/14/2021 9:07 AM HYDROGEN OPERATOR Pulse 102 05/14/2021 9:07 AM HYDROGEN OPERATOR Temperature 36.1 C (96.9 F) 05/14/2021 9:07 AM HYDROGEN OPERATOR Respiratory Rate - - Oxygen Saturation 96% 04/11/2017 10: 19 AM CDT Inhaled Oxygen Concentration - - Weight 168.7 kg (372 lb) 06/13/2021 1:2 6 PM HYDROGEN OPERATOR reported by pt Height 172.7 cm (5' 8 ) 06/13/2021 1:26 PM HYDROGEN OPERATOR Body Mass Index 56.56 06/13/2021 1:26 PM HYDROGEN OPERATOR Plan of Treatment Not on file Insurance [facility] [employer] Care Teams Channel Director Relationship Specialty [place] [address] [place] [address] PCP - General 02/14/17 [place] [address] [place] [address] 11/21/16
--- OUTSIDE RECORDS SUMMARY | 2024-08-10 13:36 | XMS_ITS | Encounter Summary ---
Author Organization [facility] Address [address] [place] [address] Phone Care Team Providers Care Art Psychotherapist Or Therapist Name Role Phone Brie Zuniga MD Unavailable [phone] Brie Zuniga MD Primary Care Provider [phone] Encounter Details Date Type Department Care Team (Latest Contact Info) Description 04/11/2017 Orders Only [facility] CONVERSION Scanning, Provider Social History Tobacco Use Types Packs/Day Years Used Date Smoking Tobacco: Never Alcohol Use Standard Drinks/Week Comments No 0 (1 standard drink = 0.6 oz pur e alcohol) Comments Unknown Sex and Gender Information Value Date Recorded Sex Assigned at Not on file Legal Sex Female 10:54 AM CDT Gender Identity Female 01/07/2023 11:15 AM CDT Sexual Orientation Straight 01/07/2023 11 :15 AM CDT documented as of this encounter Plan of Treatment Not on file documented as of this encounter Procedures Procedure Name Priority Date/Time Associated Diagnosis Comments OBSTETRIC/GYNECOLOGY ULTRASONOGRAPHY REPORT 04/11/2017 12:33 PM CDT documented in this encounter Results * OBSTETRIC/GYNECOLOGY ULTRASONOGRAPHY REPORT (04/11/2017 12:33 PM CDT) Anatomical Region Laterality Modality Ultrasound us Provider Scanning IMG OB US PROCEDURES Final Res ult documented in this encounter Visit Diagnoses Not on filedocumented in this encounter Care Teams Art Psychotherapist Or Therapist Relationship Specialty [place] [address] [place] [address] PCP - General 02/14/17 [place] [address] [place] [address] 11/21/16 documented as of this encounter
--- OUTSIDE RECORDS SUMMARY | 2024-08-10 13:36 | XMS_ITS | Clinical Summary ---
Author Organization [facility] Address [address] [place] [address] Phone Care Team Providers Care Laborer Salvage Name Role Phone Benny Jones MD Primary Care Provider [phone] Allergies Active Allergy Reactions Criticality Noted Date Comments Sulfa (Sulfonamide Antibiotics) Rash Low 01/2023 Medications FLUoxetine (PROzac) 60 mg tablet Take 20 mg by mouth daily. Active buPROPion HCL (WELLBUTRIN XL) 300 mg Extended Release 24 hour tablet Take 300 mg by mouth daily in the morning. Active lisinopriL (PRINIVIL) 10 mg tablet Take 10 mg by mouth daily. Active esomeprazole (NexIUM) 20 mg Capsule, Delayed Release(E.C.) Take 20 mg by mouth daily before breakfast. Active Encounters Date Type Department Care Team Description 07/08/2024 External Device Data [facility] ABSTRACTION Provider, Abstract from Last 3 Months Social History Tobacco Use Types Packs/Day Years Used Date Smoking Tobacco: Never Tobacco Cessation:Counseling Given: Not Answered Alcohol Use Standard Drinks/Week Comments Never 0 (1 standard drink = 0.6 oz pur e alcohol) Feeling Safe Answer Date Recorded Are you in a relationship wi th someone who hurts you emotionally and/or physically? No 05/23/2023 Comments Unknown Sex and Gender Information Value Date Recorded Sex Assigned at Not on file Legal Sex Female 11:00 AM CDT Gender Identity Not on file Sexual Orientation Not on file Last Filed Vital Signs Vital Sign Reading Time Taken Comments Blood Pressure 127/79 05/23/2023 12:45 PM PLASTER WHITTLER Pulse 75 05/23/2023 12:45 PM PLASTER WHITTLER Temperature 37 C (98.6 F) 05/23/2023 12:23 PM PLASTER WHITTLER Respiratory Rate 15 05/23/2023 12:45 PM PLASTER WHITTLER Oxygen Saturation 98% 05/23/2023 12:45 PM PLASTER WHITTLER Inhaled Oxygen Concentration - - Weight 174.6 kg (385 lb) 05/23/2023 10:00 AM PLASTER WHITTLER Height 175.3 cm (5' 9 ) 05/23/2023 10:00 AM PLASTER WHITTLER Body Mass Index 56.85 05/23/2023 10:00 AM PLASTER WHITTLER Plan of Treatment Health Maintenance Due Date Last Done Comments DTAP/TDAP/TD VACCINES (1 - Tdap) 1989 HEPATITIS B VACCINES (1 of 3 - 19+ 3-dose series) 1989 BREAST CANCER SCREENING 2010 FIT-DNA Q 3 years 2015 FIT/FOBT Q 1 year 2015 Flex Sig/CT Colonography Q 5 years 2015 ZOSTER VACCINE (1 of 2) 2020 INFLUENZA VACCINE (#1) 2024 CERVICAL CANCER SCREENING 03/25/2026 03/25/2023 COLORECTAL SCREENING 05/23/2033 05/23/2023, 05/23/2023 Colorectal Cancer Screening 05/23/2033 PNEUMOCOCCAL VACCINE 0-64 YEARS Aged Out No longer eligible b ased on patient's age to complete this topic Procedures Procedure Name Priority Date/Time Associated Diagnosis Comments COLONOSCOPY REPORT 05/23/2023 12 :23 PM PLASTER WHITTLER from Last 3 Months or Most Recently Relevant to Health Maintenance Results * COLONOSCOPY REPORT (05/23/2023 12:23 PM PLASTER WHITTLER) Narrative Procedure Note Margie Villegas MD - 05/23/2023 12:23 PM CST [facility] Endoscopy Patient Name: Ariana oJhansen Procedure Date: 05/23/2023 Date of : 1970 Attending MD: Margie Villegas MD, Procedure: Colonoscopy Indications: Screening for colorectal malignant neoplasm Providers: Margie Villegas MD Referring MD: Benny Jones MD Medicines: Monitored Anesthesia Care Complications: No immediate complications. Procedure: Informed consent was obtained for the procedure, including moderate sedation after risks were discussed. Based on the pre-procedure assessment, including review of the patient's medical history, medications, allergies, and review of systems, the patient was deemed to be an appropriate candidate for sedation. A timeout was performed. Continuous ECG monitoring, pulse oximetry, blood pressure monitoring, and direct observation were performed. The Colonoscope was introduced through the anus and advanced to the cecum, identified by appendiceal orifice and ileocecal valve. The colonoscopy was performed without difficulty. The patient tolerated the procedure well. The quality of the bowel preparation was adequate to identify polyps. Anatomical landmarks were photographed. Findings: The perianal and digital rectal examinations were normal. The entire examined colon appeared normal on direct and retroflexion views. Impression: - The entire examined colon is normal on direct and retroflexion views. - No specimens collected. Recommendation: - Discharge patient to home (ambulatory). - Repeat colonoscopy in 5 years for screening purposes. - Return to primary care physician as previously scheduled. Procedure Code(s): --- Professional --- 42081, Colonoscopy, flexible; diagnostic, including collection of specimen(s) by brushing or washing, when performed (separate procedure) CPT copyright 2020 [employer]. All rights reserved. The codes documented in this report are preliminary and upon game developer review may be revised to meet current compliance requirements. Margie Villegas MD 05/23/2023 12:23:32 PM Number of Addenda: [phone] [place] [address] Margie Villegas MD GI PROCEDURE ORDERABLES Fi nal Result from Last 3 Months or Most Recently Relevant to Health Maintenance Insurance [email or web address] [id number] Care Teams Laborer Salvage Relationship Specialty Start Date End Date Benny Jones MD [address] [place] [id number] PCP - General Family Practice 04/08/23
[2024-08-10 14:09] VITALS: BP 143/73; PULSE 86; RESP 18; TEMP 36.6; O2SAT 96
--- NOTE | 2024-08-10 14:10 | ED_ITS ---
HPI - Extremity Problem General Chief complaint: Extremity Problem,Nontraumatic Stated complaint: RlE swelling/pain Focused HPI: This is a 54-year-old female who presents to the ED for chief complaint of right knee pain and right lower extremity pain. She is being referred over from urgent care for about DVT. She does feel that the right leg is more swollen than left leg. Denies fevers, chills, numbness, weakness. States she did have a fall a couple of weeks ago but denies any further injuries. GENERAL: Well-appearing, well-nourished, and in no acute distress. HEAD: Normocephalic, atraumatic. CHEST: Clear to auscultation. No respiratory distress. HEART: Regular rate and rhythm. NEURO: Alert and oriented x3. Patient screened in triage and initial orders placed. Additional care and disposition to be based upon diagnostic testing and treatment. Source: patient Mode of arrival: ambulatory Limitations: no limitations Related Data Home Medications ?Medication ?Instructions ?Recorded ?Confirmed ?Last Taken ?Type calcium carbonate (Calcium 500) 500 mg PO DAILY 12/25/20 07/12/24 01/16/21 History drkgneqm-xbohmci-pivz-iron 18 1 tablet PO DAILY 12/25/20 07/12/24 01/16/21 Hist ory mg-FA 400 mcg-vit K 25 mcg tablet (One-A-Day Women's Complete(with vit K)) esomeprazole magnesium 40 mg 40 mg PO DAILY 04/19/22 07/12/24 Unknown History capsule,delayed release (Nexium) Allergies Allergy/AdvReac Type Severity Reaction Status Date / Time Sulfa (Sulfonamide AdvReac Mild Skin Verified 08/10/24 10:36 Antibiotics) irritation sulfur dioxide AdvReac Mild Hives Verified 08/10/24 10:36 PMFSH Past Medical History Medical History Hyperglycemia Leukocytosis Screening for lipid disorders Screening for thyroid disorder Abdominal or pelvic swelling, mass, or lump, other specified site Abnormal weight gain Body mass index (BMI) of 50-59.9 in adult (11/06/17) Depression with anxiety Dietary counseling and surveillance (01/15/18) Elevated glucose Azael Stuart infection Family history of heart attack Anxiety GERD (gastroesophageal reflux disease) Fibroids Lipoma of flank Low calcium levels Low vitamin D level Rash Subcutaneous mass Morbidly obese Surgical History Surgical History H/O: hysterectomy History of bilateral salpingo-oophorectomy 01/22/21 History of hysterectomy, supracervical 01/22/21, with extensive lysis of adhesions History of laparoscopy History of cholecystectomy History of endometrial ablation Family History Family History Mother Diabetes mellitus Hypertension Grandparent Diabetes mellitus Family history of cardiovascular disease Malignant neoplasm of prostate Father Hypertension Sibling Hypertension Other Cerebrovascular accident Family history of arthritis Social History Social History Smoking status: Never smoker Second hand tobacco smoke exposure: No Alcohol intake: never Substance use: never Substance use type: does not use Living arrangements: with family Occupation/Education: occupation 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[employer] Gender identity (if verbalized by the patient): Female Spiritual care concerns: No Course Vital Signs Vital signs: Vital Signs Temperature 97.5 F L 08/10/24 11:49 Pulse Rate 96 08/10/24 11:49 Respiratory Rate 22 H 08/10/24 11:49 Blood Pressure 139/110 H 08/10/24 11:49 Pulse Oximetry 95 08/10/24 11:49 Oxygen Delivery Room Air 08/10/24 11:49 Temperature 97.8 F 08/10/24 14:09 Pulse Rate 86 08/10/24 14:09 Respiratory Rate 18 08/10/24 14:09 Blood Pressure 143/73 H 08/10/24 14:09 Pulse Oximetry 96 08/10/24 14:09 Oxygen Delivery Room Air 08/10/24 11:49 Discharge Plan Discharge Patient Language: Citizen Of [place] Prescriptions: No Action esomeprazole magnesium [Nexium] 40 mg Capsule,Delayed Release(Dr/Ec) 40 mg PO DAILY calcium carbonate [Calcium 500] 500 mg calcium (1,250 mg) tablet 500 mg PO DAILY One-A-Day Women's Complete(vK) 18 mg-400 mcg- 25 mcg tablet 1 tablet PO DAILY bupropion HCl 300 mg tablet extended release 24 hr See Rx Instructions .ROUTE .COMPLEX Qty: 90 0RF Dose Instruction: TAKE 1 TABLET BY MOUTH EVERY MORNING Rx Instructions: TAKE 1 TABLET BY MOUTH EVERY MORNING fluoxetine 60 mg tablet See Rx Instructions .ROUTE .COMPLEX Qty: 90 0RF Dose Instruction: TAKE 1 TABLET BY MOUTH DAILY Rx Instructions: TAKE 1 TABLET BY MOUTH DAILY lisinopril 10 mg tablet 10 mg PO DAILY Qty: 90 3RF cyclobenzaprine 5 mg tablet 5 mg PO TID PRN (Reason: muscle spasm) Qty: 30 0RF Follow-up/Referrals: PHYSICIAN,FUR NAILER [Primary Care Provider] -
--- NOTE | 2024-08-10 15:49 | ED.EXTPRO ---
HPI - Extremity Problem General Chief complaint: Extremity Problem,Nontraumatic Stated complaint: RlE swelling/pain Time Seen by Provider: 08/10/24 15:41 Source: patient Mode of arrival: ambulatory Limitations: no limitations History of Present Illness HPI Narrative: RIGHT LOWER LEG PAIN STARTED FROM THE RIGHT GROIN ALL THE WAY DOWN TO THE FOOT STARTED 2 WEEKS AGO. HISTORY OF A FALL ON THAT LEG AND MONTHS AGO. 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 SHE DENIES ANY CHEST PAIN OR SHORTNESS OF BREATH Related Data Home Medications ?Medication ?Instructions ?Recorded ?Confirmed ?Last Taken ?Type calcium carbonate (Calcium 500) 500 mg PO DAILY 12/25/20 07/12/24 01/16/21 History uershizm-syutful-xnuh-iron 18 1 tablet PO DAILY 12/25/20 07/12/24 01/16/21 History mg-FA 400 mcg-vit K 25 mcg tablet (One-A-Day Women's Complete(with vit K)) esomeprazole magnesium 40 mg 40 mg PO DAILY 04/19/22 07/12/24 Unknown History capsule,delayed release (Nexium) Allergies Allergy/AdvReac Type Severity Reaction Status Date / Time Sulfa (Sulfonamide AdvReac Mild Skin Verified 08/10/24 15:27 Antibiotics) irritation sulfur dioxide AdvReac Mild Hives Verified 08/10/24 15:27 Review of Systems Review of Systems: All systems reviewed & are unremarkable except as noted in HPI and below PMFSH Past Medical History Medical History Hyperglycemia Leukocytosis Screening for lipid disorders Screening for thyroid disorder Abdominal or pelvic swelling, mass, or lump, other specified site Abnormal weight gain Body mass index (BMI) of 50-59.9 in adult (11/06/17) Depression with anxiety Dietary counseling and surveillance (01/15/18) Elevated glucose Azael Stuart infection Family history of heart attack Anxiety GERD (gastroesophageal reflux disease) Fibroids Lipoma of flank Low calcium levels Low vitamin D level Rash Subcutaneous mass Morbidly obese Surgical History Surgical History H/O: hysterectomy History of bilateral salpingo-oophorectomy 01/22/21 History of hysterectomy, supracervical 01/22/21, with extensive lysis of adhesions History of laparoscopy History of cholecystectomy History of endometrial ablation Family History Family History Mother Diabetes mellitus Hypertension Grandparent Diabetes mellitus Family history of cardiovascular disease Malignant neoplasm of prostate Father Hypertension Sibling Hypertension Other Cerebrovascular accident Family history of arthritis Social History Social History Smoking status: Never smoker Second hand tobacco smoke exposure: No Alcohol intake: never Substance use: never Substance use type: does not use Living arrangements: with family Occupation/Education: occupation 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 MUSCULOSKELETAL: RIGHT LOWER LEG DIFFUSELY TENDER, NO BRUISES, NO RASH, SLIGHTLY SWOLLEN COMPARED TO THE LEFT 1, 1+ EDEMA NEUROLOGIC: ALERT AND ORIENTED ?3, WOOD STRIP BLOCK FLOOR INSTALLER IS NORMAL TESTED, NO GROSS MOTOR DEFICIT Course Vital Signs Vital signs: Vital Signs Temperature 36.4 C L 08/10/24 11:49 Pulse Rate 96 08/10/24 11:49 Respiratory Rate 22 H 08/10/24 11:49 Blood Pressure 139/110 H 08/10/24 11:49 Pulse Oximetry 95 08/10/24 11:49 Oxygen Delivery Room Air 08/10/24 11:49 Temperature 36.6 C 08/10/24 14:09 Pulse Rate 86 08/10/24 14:09 Respiratory Rate 18 08/10/24 14:09 Blood Pressure 143/73 H 08/10/24 14:09 Pulse Oximetry 96 08/10/24 14:09 Oxygen Delivery Room Air 08/10/24 11:49 MDM - Extremity (Nontraumatic) MDM Narrative Medical decision making narrative: RIGHT LOWER LEG PAIN MUSCULOSKELETAL VERSUS DEEP VEIN THROMBOSIS VENOUS DOPPLER SHOWED NO BLOOD CLOT X-RAY OF THE RIGHT HIP AND RIGHT KNEE SHOWED ADVANCED ARTHRITIS. Imaging Data Radiologist's impression: Impressions Venous Doppler Study 08/10/24 15:02 IMPRESSION: 1. No deep venous thrombosis. Hip/Pelvis X-Ray 08/10/24 15:17 IMPRESSION: 1. Mild osteoarthritis of the hips. Knee X-Ray 08/10/24 15:21 IMPRESSION: 1. Mild tricompartmental osteoarthritis the right knee with small knee joint effusion. Critical Care Time Critical Care Time Critical Care Time: No Discharge Plan Discharge Clinical Impression: Acute leg pain Patient Disposition: Home, Self-Care Condition: Stable Instructions: Leg Pain (ED) Additional Instructions: RETURN IF SYMPTOMS ARE WORSENING , CALL YOUR FAMILY PHYSICIAN FOR APPOINTMENT, TAKE TYLENOL NEEDED FOR ACHES AND PAIN, CONTINUE HOME MEDICATIONS. KEEP LEG ELEVATED, COMPRESSION STOCKING, OF WORK FOR THE NEXT 3 DAYS Patient Language: Moroccan Prescriptions: New diclofenac sodium 75 mg tablet,delayed release (DR/EC) 75 mg PO BID PRN (Reason: pain) Qty: 20 0RF No Action esomeprazole magnesium [Nexium] 40 mg Capsule,Delayed Release(Dr/Ec) 40 mg PO DAILY calcium carbonate [Calcium 500] 500 mg calcium (1,250 mg) tablet 500 mg PO DAILY One-A-Day Women's Complete(vK) 18 mg-400 mcg- 25 mcg tablet 1 tablet PO DAILY bupropion HCl 300 mg tablet extended release 24 hr See Rx Instructions .ROUTE .COMPLEX Qty: 90 0RF Dose Instruction: TAKE 1 TABLET BY MOUTH EVERY MORNING Rx Instructions: TAKE 1 TABLET BY MOUTH EVERY MORNING fluoxetine 60 mg tablet See Rx Instructions .ROUTE .COMPLEX Qty: 90 0RF Dose Instruction: TAKE 1 TABLET BY MOUTH DAILY Rx Instructions: TAKE 1 TABLET BY MOUTH DAILY lisinopril 10 mg tablet 10 mg PO DAILY Qty: 90 3RF cyclobenzaprine 5 mg tablet 5 mg PO TID PRN (Reason: muscle spasm) Qty: 30 0RF Follow-up/Referrals: PHYSICIAN,ASE MASTER MECHANIC [Non-Staff] - Stand Alone Forms: Work/School Release IP
--- OUTSIDE RECORDS SUMMARY | 2024-08-10 17:29 | XMS_ITS | Clinical Summary ---
Author Organization [facility] Address [address] [place] [address] Care Team Providers Care Slip Tender Name Role Phone Justine Finley Primary Care Provider [phone] Allergies Active Allergy Reactions Criticality Noted Date [...] 2024 Annual Physical 03/25/2024 03/25/2023 PHQ-2 (Physician [place]) 03/25/2024 03/25/2023 PHQ-2 (Physician [place]) 06/16/2024 03/25/2023 Meningococcal B Vaccine Aged Out [...] Most Recently Relevant to Health Maintenance Insurance [facility] Care Teams Slip Tender Relationship Specialty [place] [address] [place] [address] PCP - General PHYSICIAN DOVETAIL MACHINE OPERATOR 10/16/20
--- OUTSIDE RECORDS SUMMARY | 2024-08-10 17:29 | XMS_ITS | Referral Summary ---
Author Organization [facility] [address] Address [address] [place] [address] Care Team Providers Care Solutions Architect Name Role Phone Brie Zuniga MD Unavailable [phone] Brie Zuniga MD Primary Care Provider [phone] Allergies Active Allergy Reactions Criticality Noted Date [...] Comments Blood Pressure 149/95 05/14/2021 9:07 AM HEAD OF ENGLISH Pulse 102 05/14/2021 9:07 AM HEAD OF ENGLISH Temperature 36.1 C (96.9 F) 05/14/2021 9:07 AM HEAD OF ENGLISH Respiratory Rate - - Oxygen Saturation 96% 04/11/2017 10: 19 AM CDT Inhaled Oxygen Concentration - - Weight 168.7 kg (372 lb) 06/13/2021 1:2 6 PM HEAD OF ENGLISH reported by pt Height 172.7 cm (5' 8 ) 06/13/2021 1:26 PM HEAD OF ENGLISH Body Mass Index 56.56 06/13/2021 1:26 PM HEAD OF ENGLISH Plan of Treatment Not on file Insurance [facility] H[facility]/PPO Address: [address] [address] [place] [address] [facility] H[facility]/PPO Address: [address] [place] [address] [facility] HMO/PPO Address: [address] [place] [address] Care Teams Solutions Architect Relationship Specialty [place] [address] [address] PCP - General 02/14/17 [place] [address] [address] 11/21/16
--- OUTSIDE RECORDS SUMMARY | 2024-08-10 17:29 | XMS_ITS | Encounter Summary ---
Author Organization [facility] Address [address] [place] [address] Phone Care Team Providers Care Stratigrapher Name Role Phone Brie Zuniga MD Unavailable [phone] Brie Zuniga MD Primary Care Provider [phone] Encounter Details Date Type Department Care Team [...] on filedocumented in this encounter Care Teams Stratigrapher Relationship Specialty [place] [address] [address] [place] [address] PCP - General 02/14/17 [place] [address] [place] [address] 11/21/16 documented as of this encounter
--- OUTSIDE RECORDS SUMMARY | 2024-08-10 17:29 | XMS_ITS | Clinical Summary ---
Author Organization [facility] Address [address] [place] [address] Phone Care Team Providers Care Teller Supervisor Name Role Phone Benny Jones MD Primary Care Provider [phone] Allergies Active Allergy Reactions Criticality Noted Date [...] Comments Blood Pressure 127/79 05/23/2023 12:45 PM WHEEL ASSEMBLER Pulse 75 05/23/2023 12:45 PM WHEEL ASSEMBLER Temperature 37 C (98.6 F) 05/23/2023 12:23 PM WHEEL ASSEMBLER Respiratory Rate 15 05/23/2023 12:45 PM WHEEL ASSEMBLER Oxygen Saturation 98% 05/23/2023 12:45 PM WHEEL ASSEMBLER Inhaled Oxygen Concentration - - Weight 174.6 kg (385 lb) 05/23/2023 10:00 AM WHEEL ASSEMBLER Height 175.3 cm (5' 9 ) 05/23/2023 10:00 AM WHEEL ASSEMBLER Body Mass Index 56.85 05/23/2023 10:00 AM WHEEL ASSEMBLER Plan of Treatment Health Maintenance Due Date [...] Comments COLONOSCOPY REPORT 05/23/2023 12 :23 PM WHEEL ASSEMBLER from Last 3 Months or Most Recently Relevant to Health Maintenance Results * COLONOSCOPY REPORT (05/23/2023 12:23 PM WHEEL ASSEMBLER) Narrative Procedure Note Margie Villegas MD - 05/23/2023 12:23 PM CST [facility] Endoscopy Patient Name: Ariana Johansen Procedure Date: 05/23/2023 Date of : 1970 [...] previously scheduled. Procedure Code(s): --- Professional --- 60302, Colonoscopy, flexible; diagnostic, including collection of specimen(s) by brushing or washing, when performed (separate procedure) CPT copyright 2020 [employer]. All rights reserved. The codes documented in this report are preliminary and upon java spring developer review may be revised to meet current compliance requirements. Margie Villegas MD 05/23/2023 12:23:32 PM Number of Addenda: [phone] [id number] [place] [address] Margie Villegas MD GI PROCEDURE ORDERABLES Fi nal Result from Last 3 Months or Most Recently Relevant to Health Maintenance Insurance [employer] [facility] [id number] Care Teams Teller Supervisor Relationship Specialty Start Date End Date Benny Jones MD [address] [place] [id number] PCP - General Family Practice 04/08/23
--- OUTSIDE RECORDS SUMMARY | 2024-08-10 17:29 | XMS_ITS | Clinical Summary ---
Author Organization [facility] [address] Address [address] [place] [address] Care Team Providers Care Electronic Industrial Controls Mechanic Name Role Phone Brie Zuniga MD Unavailable [phone] Brie Zuniga MD Primary Care Provider [phone] Allergies Active Allergy Reactions Criticality Noted Date [...] - 06/15/2001 HYSTERECTOMY 01/22/2021 Dr. Flores at [facility] CHOLECYSTECTOMY Medical History Medical History Date [...] Comments Blood Pressure 149/95 05/14/2021 9:07 AM CHART PICKER Pulse 102 05/14/2021 9:07 AM CHART PICKER Temperature 36.1 C (96.9 F) 05/14/2021 9:07 AM CHART PICKER Respiratory Rate - - Oxygen Saturation 96% 04/11/2017 10: 19 AM CDT Inhaled Oxygen Concentration - - Weight 168.7 kg (372 lb) 06/13/2021 1:2 6 PM CHART PICKER reported by pt Height 172.7 cm (5' 8 ) 06/13/2021 1:26 PM CHART PICKER Body Mass Index 56.56 06/13/2021 1:26 PM CHART PICKER Plan of Treatment Not on file Insurance [facility] CHOICE [facility]US [facility] CHO[facility]US [facility] CHOICE PLUS Care Teams Electronic Industrial Controls Mechanic Relationship Specialty [place] [address] [place] [address] PCP - General 02/14/17 [place] [address] [address] [place] [address] 11/21/16
== END 2024-08-10 16:46 | disposition home or self-care (01) ==
PROVIDERS: Emergency Provider Emergency Medicine
DX: M79.604 Pain in right leg (principal); F41.8 Other specified anxiety disorders; K21.9 Gastro-esophageal reflux disease without esophagitis; E66.01 Morbid (severe) obesity due to excess calories; Z68.43 Body mass index [BMI] 50.0-59.9, adult; M16.0 Bilateral primary osteoarthritis of hip; M17.11 Unilateral primary osteoarthritis, right knee
CPT/HCPCS: 73502; 73562; 93971; 99284

== ENCOUNTER 2024-08-30 08:49 | Outpatient (CLI) | payer OTHER, SELFPAY ==
--- NOTE | ~2024-08-30 | MR_ITS ---
EXAMINATION: MR knee RT wo con DATE: 08/30/2024 09:47 INDICATION: Unilateral primary osteoarthritis of the right knee TECHNIQUE: Magnetic resonance imaging (MRI) of the right knee was performed without intravenous contr ast. Sequences included coronal PD-weighted FSE, coronal PD-weighted FS FSE, sagittal T2-weighted FS E, sagittal PD-weighted FS FSE and axial PD weighted fat saturated FSE. COMPARISON: None. FINDINGS: Evaluation moderately limited by motion artifact is some degree on all sequences included repeated se quences with motion suppression technique. Medial compartment: There is medial extrusion of the medial meniscal body. There is a full-thickness radial tear at the l ateral side of the posterior horn of the medial meniscus. Likely additional tearing of indeterminate morphology at the extruded meniscal body however specificity is limited by the motion artifact. Parti al-thickness cartilage loss greatest on the anterior to central weightbearing medial femoral condyle where it appears to involve greater than 50% the cartilage thickness but without degenerative subchon dral changes. Mild partial-thickness cartilage loss along the medial tibial plateau. Moderate size ma rginal osteophyte are present. Lateral compartment: Tear, likely complex at the posterior horn of the lateral meniscus. Partial-thickness cartilage loss involving at least 50% the cartilage thickness at the anterior weightbearing lateral femoral condyle and along the medial side of the lateral tibial plateau along the shoulder the intercondylar eminence . No degenerative subchondral changes. Moderate size marginal osteophytes are present. Patellofemoral compartment: Deep chondral ulceration with underlying subarticular edema-like signal change at the lateral trochle a. Less severe partial thickness cartilage ulceration and fissuring which appears to involve greater than 50% the cartilage thickness along the lateral patellar facet and less than 50% the cartilage thi ckness at the medial patellar facet and medial trochlea. Ligaments and tendons: No definitive tear of the anterior and posterior cruciate ligaments. Likely chronic partial tear incl uding a longitudinal split tear at the proximal aspect of the medial collateral ligament without surr ounding edema to suggest acute injury. No definitive tear of the fibular collateral ligament complex which appears grossly intact. The extensor mechanism is normal. The visualized medial and lateral ham string tendons as well as the iliotibial band are normal. Fluid: Small right knee joint effusion primarily in the lateral gutter of the suprapatellar pouch. No loose osteochondral bodies identified. Osseous/other: There is red marrow reexpansion in the metaphyseal regions of the distal femur, proximal tibia and fi bula. No fracture or pathologic marrow replacing process. IMPRESSION: 1. Evaluation moderately limited by mild to moderate motion artifact on all sequences including repea zach sequences with motion suppression technique. 2. Medial and lateral meniscal tears. 3. Tricompartmental osteoarthritis, moderate severity with high-grade chondral malacia the lateral si de of the patellofemoral compartment, and mild to moderate severity with moderate grade chondromalaci a in the medial and lateral compartments. 4. Likely chronic partial tear of the proximal medial collateral ligament. Reviewed, dictated and finalized at location A. IMPRESSION: 1. Evaluation moderately limited by mild to moderate motion artifact on all seq uences including repeated sequences with motion suppression technique. 2. Medial and lateral meniscal tears. 3. Tricompartmental osteoarthritis, moderate severity with high-grade chondral malacia the lateral side of the patellofemoral compartment, and mild to moderat e severity with moderate grade chondromalacia in the medial and lateral compart ments. 4. Likely chronic partial tear of the proximal medial collateral ligament.
== END 2024-08-30 08:50 | disposition home or self-care (01) ==
LOC: GOSHIMG 08:50
PROVIDERS: PCP Family Medicine; Visit Provider Nurse Practitioner Adult Health
DX: M17.11 Unilateral primary osteoarthritis, right knee (principal); S83.241A Other tear of medial meniscus, current injury, right knee, initial encounter; S83.281A Other tear of lateral meniscus, current injury, right knee, initial encounter; X58.XXXA Exposure to other specified factors, initial encounter
CPT/HCPCS: 73721

== ENCOUNTER 2025-01-08 07:43 | Outpatient (CLI) | payer OTHER, SELFPAY ==
--- OUTSIDE RECORDS SUMMARY | 2025-01-08 07:45 | XMS_ITS | Encounter Summary ---
Author Organization [facility] Address [address] [place] [address] Phone Care Team Providers Care Educational Manager Name Role Phone Brie Zuniga MD Unavailable [phone] Brie Zuniga MD Primary Care Provider [phone] Encounter Details Date Type Department Care Team [...] on filedocumented in this encounter Care Teams Educational Manager Relationship Specialty [place] [address] [address] [place] [address] PCP - General 02/14/17 [place] [address] [address] [place] [address] 11/21/16 documented as of this encounter
--- OUTSIDE RECORDS SUMMARY | 2025-01-08 07:45 | XMS_ITS | Referral Summary ---
Author Organization [facility] [address] Address [address] [place] [address] Care Team Providers Care Environmental Lawyer Name Role Phone Brie Zuniga MD Unavailable [phone] Brie Zuniga MD Primary Care Provider [phone] Allergies Active Allergy Reactions Criticality Noted Date [...] Comments Blood Pressure 149/95 05/14/2021 9:07 AM FIBER ARTIST Pulse 102 05/14/2021 9:07 AM FIBER ARTIST Temperature 36.1 C (96.9 F) 05/14/2021 9:07 AM FIBER ARTIST Respiratory Rate - - Oxygen Saturation 96% 04/11/2017 10: 19 AM CDT Inhaled Oxygen Concentration - - Weight 168.7 kg (372 lb) 06/13/2021 1:2 6 PM FIBER ARTIST reported by pt Height 172.7 cm (5' 8) 06/13/2021 1:26 PM FIBER ARTIST Body Mass Index 56.56 06/13/2021 1:26 PM FIBER ARTIST Plan of Treatment Not on file Insurance [facility] CHOICE PLUS [facility] CHOICE PLUS [facility] CHOICE PLUS Care Teams Environmental Lawyer Relationship Specialty [place] [address] [address] PCP - General 02/14/17 [place] [address] [address] 11/21/16
--- OUTSIDE RECORDS SUMMARY | 2025-01-08 07:45 | XMS_ITS | Clinical Summary ---
Author Organization [facility] [address] Address [address] [place] [address] Care Team Providers Care Registrar Assistant Name Role Phone Brie Zuniga MD Unavailable [phone] Brie Zuniga MD Primary Care Provider [phone] Allergies Active Allergy Reactions Criticality Noted Date [...] REPAIR 06/16/2000 - 06/15/2001 HYSTERECTOMY 01/22/2021 Dr. Folres at [facility] CHOLECYSTECTOMY Medical History Medical History Date Comments [...] Comments Blood Pressure 149/95 05/14/2021 9:07 AM DISPLAYER MERCHANDISE Pulse 102 05/14/2021 9:07 AM DISPLAYER MERCHANDISE Temperature 36.1 C (96.9 F) 05/14/2021 9:07 AM DISPLAYER MERCHANDISE Respiratory Rate - - Oxygen Saturation 96% 04/11/2017 10: 19 AM CDT Inhaled Oxygen Concentration - - Weight 168.7 kg (372 lb) 06/13/2021 1:2 6 PM DISPLAYER MERCHANDISE reported by pt Height 172.7 cm (5' 8) 06/13/2021 1:26 PM DISPLAYER MERCHANDISE Body Mass Index 56.56 06/13/2021 1:26 PM DISPLAYER MERCHANDISE Plan of Treatment Not on file Insurance [facility] Address: [address] [place] [address] [facility] Address: [address] [place] [address] [facility] H[facility]PPO Address: [facility] [id number] [place] [address] Care Teams Registrar Assistant Relationship Specialty [place] [address] [place] [address] PCP - General 02/14/17 [place] [address] [address] [place] [address] 11/21/16
--- OUTSIDE RECORDS SUMMARY | 2025-01-08 07:45 | XMS_ITS | Clinical Summary ---
Author Organization [facility] Address [address] [place] [address] Care Team Providers Care Business Systems Architect Name Role Phone Justine Finley Primary Care Provider [phone] Allergies Active Allergy Reactions Criticality Noted Date [...] 10:38 AM CDT Height 175.3 cm (5' 9) 03/25/2023 10:38 AM CDT Body Mass Index 57.45 03/25/2023 10:38 AM CDT Plan of Treatment Health Maintenance Due Date Last Done Comments Colorectal Cancer Screening Colonoscopy (10 Years) 1970 Hepatitis C 1988 DTaP, Tdap and Td Vaccines ( 1 - Tdap) 1989 Hepatitis B Vaccines (1 of 3 - 19+ 3-dose series) 1989 Pneumococcal Vaccine: 50+ Years (1 of 1 - PCV) 2020 Zoster Vaccines (1 of 2) 2020 Mammogram Screening 11/21/2022 11/21/2020 COVID-19 Vaccine (2 - Novava x series) 02/15/2024 10/16/2020 (Patient Reported) Annual Physical 03/25/2024 03/25/2023 PHQ-2 (Physician [place]) 06/16/2024 03/25/2023 Meningococcal B Vaccine Aged Out [...] Most Recently Relevant to [place] [address] [facility] Care Teams Business Systems Architect Relationship Specialty [place] [address] [place] [address] PCP - General PHYSICIAN RF MANAGER 10/16/20
--- OUTSIDE RECORDS SUMMARY | 2025-01-08 07:45 | XMS_ITS | Clinical Summary ---
Author Organization [facility] Address [address] [place] [address] Phone Care Team Providers Care Sales Service Promoter Name Role Phone Benny Jones MD Primary Care Provider [phone] Allergies Active Allergy Reactions Criticality Noted Date [...] mg by mouth daily before breakfast. Active CALCIUM CITRATE-VITAMIN D3 ORAL Take by mouth. Active multivit,calc,mi ns/iron/folic (ONE-A-DAY WOMENS FORMULA ORAL) Take by mouth daily. Active Encounters Date Type Department Care Team Description 01/04/2025 Travel from Last 3 Months Social History Tobacco Use Types Packs/Day Years Used Date Smoking Tobacco: Never Tobacco Cessation:Counseling Given: Not Answered Alcohol Use Standard Drinks/Week Comments Never 0 (1 standard drink = 0.6 oz pur e alcohol) Comments No Sex and Gender Information Value Date Recorded Sex Assigned at Not on file Legal Sex Female 11:00 AM CDT Gender Identity Not on file Sexual Orientation Not on file Last Filed Vital Signs Vital Sign Reading Time Taken Comments Blood Pressure 127/79 05/23/2023 12:45 PM DIRECTOR OF MANAGED CARE Pulse 75 05/23/2023 12:45 PM DIRECTOR OF MANAGED CARE Temperature 37 C (98.6 F) 05/23/2023 12:23 PM DIRECTOR OF MANAGED CARE Respiratory Rate 15 05/23/2023 12:45 PM DIRECTOR OF MANAGED CARE Oxygen Saturation 98% 05/23/2023 12:45 PM DIRECTOR OF MANAGED CARE Inhaled Oxygen Concentration - - Weight 183.7 kg (405 lb) 01/04/2025 10:33 AM CDT Height 175.3 cm (5' 9) 01/04/2025 10:33 AM CDT Body Mass Index 59.81 01/04/2025 10:33 AM CDT Plan of Treatment Upcoming Encounters Date Type Department Care Team (Latest Contact Info) Description 01/14/2025 9:30 AM CDT Hospital Encounter [facility] [address] [place] [address] Donnell Wren MD [address] [place] [address] [address] [place], [place] [id number] Gastroesophageal reflux disease, unspecified whether esophagitis present 01/14/2025 9:30 AM CDT - 01/14/2025 9:45 AM CDT Surgery [facility] [address] [address] [place] [address] Donnell Wren MD [address] [place] [address] [address] [place] [address] ESOPHAGOGASTRODUODENOSCOPY WITH POSSIBLE BIOPSY (PRE OP) Scheduled Procedures Name Priority Associated Diagnoses Date/Ti me ESOPHAGOGASTRODUODENOSCOPY W ITH BIOPSY Gastroesophageal reflux disease, unspecified whether esophagitis present 01/14/2025 9:30 AM CDT Health Maintenance Due Date Last Done Comments Pre-Diabetes and Diabetes Screening 1970 DTAP/TDAP/TD VACCINES (1 - Tdap) 1989 HEPATITIS B VACCINES (1 of 3 - 19+ 3-dose series) 1989 BREAST CANCER SCREENING 2010 FIT-DNA Q 3 years 2015 FIT/FOBT Q 1 year 2015 Flex Sig/CT Colonography Q 5 years 2015 ZOSTER VACCINE (1 of 2) 2020 INFLUENZA VACCINE (#1) 2025 COLORECTAL SCREENING 05/23/2033 05/23/2023, 05/23/20 Colorectal Cancer Screening 05/23/2033 Goals Goal Patient Goal Type Associated Problems Recent Progress Patient-Stated? Author Autogenerat ed Goal Care Plan Autogenerated Problem No Shay Davalos Procedures Procedure Name Priority Date/Time Associated Diagnosis Comments COLONOSCOPY REPORT 05/23/2023 12 :23 PM DIRECTOR OF MANAGED CARE from Last 3 Months or Most Recently Relevant to Health Maintenance Results * COLONOSCOPY REPORT (05/23/2023 12:23 PM DIRECTOR OF MANAGED CARE) Narrative Procedure Note Margie Villegas MD - 05/23/2023 12:23 PM CST [facility] Endoscopy Patient Name: Ariana Johansen Procedure Date: [...] previously scheduled. Procedure Code(s): --- Professional --- 86077, Colonoscopy, flexible; diagnostic, including collection of specimen(s) by brushing or washing, when performed (separate procedure) CPT copyright 2020 [employer] [place] [employer]. All rights reserved. The codes documented in this report are preliminary and upon cut lace machine operator review may be revised to meet current compliance requirements. Margie Villegas MD 05/23/2023 12:23:32 PM Number of Addenda: [id number] , [place] [address] Margie Villegas MD GI PROCEDURE ORDERABLES Fi nal Result from Last 3 Months or Most Recently Relevant to Health Maintenance Additional Health Concerns Active Problems Noted Date Diagnosed Date Autogenerated Problem 12/29/2024 Insurance [facility] [employer] [employer] [facility] [id number] [facility] [place]: [facility] [address] [place] [address] Care Teams Sales Service Promoter Relationship Specialty Start Date End Date Benny Jones MD [address] [place] [id number] PCP - General Family Practice 04/08/23
--- OUTSIDE RECORDS SUMMARY | 2025-01-08 07:45 | XMS_ITS | Patient Health Record ---
Author Organization [facility] [employer] [facility] Address [address] [facility] [address] [place] [address] Care Team Providers Care Apprenticeship Consultant Name Role Phone Castro Macias Unavailable [phone] Reason For Referral No Information Medications Medication SIG (Take, Route, Frequency, Duration) Notes Start Date End Date Status Lisinopril 10 MG Oral 07/11/2023 Ac tive Qsymia 7.5-46 MG Oral 07/11/2023 Ac tive buPROPion HCl ER (XL) 300 MG Oral 07/11/2023 Active Azithromycin 250 MG Oral 07/11/2023 Active FLUoxetine HCl 60 MG Oral 07/11/2023 Active Plan Of Treatment No Information Insurance Providers Payer Name Payer Address Payer Phone Subscriber Number Group Number Insured Name Patient Relationship to Insured Coverage Start Date Coverage End Date [facility] [address] [place] [address] [id number] RAFAEL JOHANSEN Spouse - patient is the spouse of the insured Medical (General) History Surgical History Surgery Date(Month/Year) Removal of gallbladder (19871) 1 Hysterectomy (67021) 01/22/2021 Hernia repair ([id number]) 02/14/2001
--- NOTE | 2025-01-08 08:07 | ECG_ITS ---
Test Date: 2025-01-08 08:24:42 Measurements Intervals [place] Rate: 91 P: 66 MT: 154 QRS: 42 QRSD: 88 T: 40 QT: 370 QTc: 456 Interpretive Statements SINUS RHYTHM POSSIBLE LEFT ATRIAL ENLARGEMENT [-0.1mV P-WAVE IN V1/V2] No previous ECG available for comparison Electronically Signed On 01-09-2025 14:06:21 CDT by Cirilo Gamboa M.D.
[2025-01-08 08:16] LABS: Hematocrit 42.7 % (37.0-47.0); Hemoglobin 13.4 g/dL (12.0-15.0); Immature Granulocyte Percent A 0.5 % (0-0.5); Lymphocytes Absolute Auto 3.10 K/mm3 (0.9-3.2); Mean Corpuscular HGB Conc 31.4 g/dl (32-36); Mean Corpuscular Hemoglobin 27.4 pg (26-34); Mean Corpuscular Volume 87.3 fl (80-100); Nucleated Red Blood Cells Absolute Auto 0.000 K/mm3 (0.0-0.012); Nucleated Red Blood Cells Perc 0.0 % (0.0-0.2); Platelet Count Result 297 k/mm3 (150-375); Red Blood Count 4.89 M/mm3 (4.2-5.4); White Blood Count 10.1 K/mm3 (4.5-10.0)
[2025-01-08 08:35] LABS: Alanine Aminotransferase 21 U/L (6-35); Albumin Level 3.7 g/dL (3.5-5.1); Alkaline Phosphatase 99 U/L (38-126); Anion Gap 11 mmol/L (4-12); Aspartate Amino Transferase 26 U/L (14-36); Bilirubin,Total 0.4 mg/dL (0.2-1.3); Blood Urea Nitrogen 12 mg/dL (7-17); Calcium 8.8 mg/dL (8.4-10.2); Carbon Dioxide 24 mmol/L (22-30); Chloride 102 mmol/L (98-107); Cholesterol 156 mg/dL (0-200); Estimated Glomerular Filt Rate > 60; Glucose 185 mg/dL (65-110); HDL Direct 35 mg/dL; Potassium 3.5 mmol/L (3.4-5.0); Sodium 137 mmol/L (137-145); Total Protein 6.8 g/dL (6.3-8.2); Triglycerides 133 mg/dL (<150)
[2025-01-08 08:54] LABS: Hemoglobin A1C 7.1 % (<5.7)
[2025-01-08 09:11] LABS: Thyroid Stimulating Hormone 2.970 uIU/mL (0.465-4.680)
== END 2025-01-08 07:44 | disposition home or self-care (01) ==
LOC: ANHLAB 07:44
PROVIDERS: PCP Family Medicine; Visit Provider Nurse Practitioner Family
DX: Z13.1 Encounter for screening for diabetes mellitus (principal); Z13.29 Encounter for screening for other suspected endocrine disorder; E66.01 Morbid (severe) obesity due to excess calories; Z13.220 Encounter for screening for lipoid disorders
CPT/HCPCS: 36415; 80053; 80061; 83036; 84443; 85025; 93005